=== PATIENT | female | born 1990 | race Caucasian/White ===

== ENCOUNTER 2024-12-12 12:41 | Inpatient (IN) | payer MEDICAID, SELFPAY ==
--- NOTE | ~2024-12-12 | XR_ITS ---
CLINICAL HISTORY: fever unknown origin 1 view chest x-ray Comparison: CT - CT ABDOMEN PELVIS WO IV CON - 12/12/24 15:55 EDT Findings: Low lung volumes are present. Portable technique is limited by motion, lordotic positioning, and body habitus. Allowing for these limitations, the lungs are clear. Cardiac and mediastinal silhouettes are normal. IMPRESSION: 1. No acute cardiopulmonary findings. This document has been electronically signed by: Milton Fong III, MD PHD on 12/12/2024 22:31:18
--- NOTE | ~2024-12-12 | XR_ITS ---
CLINICAL HISTORY: R side back pain Three views of the lumbar spine. COMPARISON: None provided. FINDINGS: Five wqo-vfr-fumejod lumbar type vertebral bodies. Normal vertebral body alignment. Vertebral body heights are maintained. No evidence of acute vertebral body injury. Vertebral disc space heights are maintained. No significant degenerative changes. Visualized portions of the bones of the pelvis appear intact. IMPRESSION: 1. No radiographic evidence of acute injury to the lumbar spine. No significant degenerative changes. This document has been electronically signed by: Jarod Kunz MD on 12/12/2024 14:15:59
--- NOTE | ~2024-12-12 | CT_ITS ---
CLINICAL HISTORY: flank pain, low back pain, concern for stone CT abdomen and pelvis without IV contrast. COMPARISON: None provided. FINDINGS: Minimal atelectasis along the posterior lower lobes. Hepatic steatosis. Liver is enlarged with right lobe measuring 19.2 cm. Normal gallbladder. Normal spleen. Normal pancreas. Normal adrenal glands. No right-sided hydronephrosis. No right renal or ureteral calculus. No left-sided hydronephrosis. No left renal or ureteral calculus. Normal appendix. Mild colonic stool burden. No bowel obstruction. No evidence of diverticulitis. No mesenteric or retroperitoneal lymphadenopathy. Normal abdominal aorta. Normal appearance of the urinary bladder. Dominant right ovarian cyst/follicle measuring up to 2.1 cm. Small fat containing umbilical hernia. No acute fracture or suspicious bone lesion. IMPRESSION: 1. No evidence of renal obstruction. No renal or ureteral calculus bilaterally. 2. Dominant right ovarian cyst/follicle measuring up to 2.1 cm 3. Hepatic steatosis with hepatomegaly. This document has been electronically signed by: Jarod Kunz MD on 12/12/2024 16:39:36
--- NOTE | ~2024-12-12 | MR_ITS ---
CLINICAL HISTORY: intractable back pain with fever max 102 MR lumbar spine with and without gadolinium Comparison: CT - CT ABDOMEN PELVIS WO IV CON - 12/12/24 15:55 EDT Findings: The usual lumbar lordosis is maintained without spondylolisthesis. Vertebral body heights are maintained. No suspicious marrow signal abnormality or enhancement. Mild multilevel facet osteoarthritis. The conus medullaris terminates normally at L1-L2. No evidence of epidural abscess. At L5-S1, the intervertebral disc is desiccated with a right central/foraminal disc protrusion and annular fissure. This may abut the transiting right S1 nerve root. No significant neural foraminal narrowing. Small left renal cyst. Circumaortic left renal vein, normal variant. IMPRESSION: 1. No evidence of lumbar spine infection. 2. L5-S1 right central/foraminal disc protrusion and annular fissure with possible mild abutment of the transiting right S1 nerve root. This document has been electronically signed by: Too Cross DO on 12/13/2024 11:03:46
[2024-12-12 12:51] VITALS: BP 105/60; BP 150/98; PULSE 108; PULSE 120; RESP 18; TEMP 37.9; O2SAT 96; BMI 43.4
--- NOTE | 2024-12-12 12:53 | ED_ITS ---
HPI - General Adult General Chief complaint: General Medical Stated complaint: R LOW BACK PAIN X3D,DIFF W/SITTING PER EMS Time Seen by Provider: 12/12/24 12:52 Source: patient, RN notes reviewed and old records reviewed Mode of arrival: ambulatory History of Present Illness ED Provider: FLORENTIN Turcios HPI narrative: 34-year-old female with a medical history of PID presents to the emergency department by ambulance due to 3 days of right-sided lower back pain, with fever, chills, nausea and 1 episode of diarrhea. Patient states she woke up 3 days ago when she was getting into bed in a chair she had pain in the lower right side of her back that felt like a muscle spasm, states she had been trying to stretch to relieve the pain without effect. Patient states back pain is severe, is only able to lay on her left side, it is having difficulty walking and was unable to lift her right leg to get her pants on this morning, needed help from her to get dressed. Patient states she took Flexeril last night without effect, but has not tried any other analgesia. She denies fall, trauma, injury or increased physical activity. Additionally patient woke up with fever, chills, intermittent nausea and 1 episode of watery diarrhea. Patient states she had her Godson stay the night at her house who was sick with same symptoms. Denies chest pain, shortness of breath, black/tarry stool, urinary symptoms. MD complaint: R side lower back pain, nausea, fever, chills Related Data Allergies Allergy/AdvReac Type Severity Reaction Status Date / Time latex Allergy Unknown Verified 12/12/24 12:54 tramadol Allergy Unknown Verified 12/12/24 12:54 Review of Systems 2 Review of Systems: CONST: Negative for body aches. POS fever, chills HENT: Negative for neck pain/stiffness, headache, congestion, sore throat, swelling. EYES: Negative for discharge/pain or vision changes. RESP: Negative for cough/hemoptysis and shortness of breath. CV: Negative chest pain, difficulty breathing, palpitations. ABD: Negative pain, nausea, vomiting. : Negative increase frequency, dysuria, blood in urine or stool. MUSC: Negative for muscle aches, edema. POS R side lumbar back pain SKIN: Negative rash, lesions/sores. NEURO: Negative headache, dizziness, weakness. Yes all other systems are reviewed and are negative [facility] Past Medical History Attestation statement: The following information was validated with the patient. Source: old records reviewed and nursing notes reviewed Social History Social History Smoked in Last 30 Days: No Substance Use Type: Marijuana Substance Use Type Other:: vape Advance Directives: No Advance Directives Information Provided: Yes Physical Exam ED Vital Signs: Vital Signs - 24 hr 12/12/24 12:51 12/12/24 14:13 12/12/24 14:22 Temperature 100.2 F 98.5 F 98 F Pulse Rate 108 H 93 91 Respiratory Rate 18 16 Blood Pressure 105/60 89/52 L 105/63 Pulse Oximetry 96 94 Oxygen Delivery Method Room Air Room Air 12/12/24 17:53 Temperature 97.9 F Pulse Rate 84 Respiratory Rate 16 Blood Pressure 119/69 Pulse Oximetry 97 Oxygen Delivery Method Room Air BMI result Body Mass Index 43.4 GENERAL APPEARANCE: ?AxOx4, generally well-appearing, no acute distress. HEENT: ?NC, AT. MMM. EOMI, clear conjunctiva, oropharynx clear. NECK: ?Supple without lymphadenopathy.? No stiffness or restricted ROM. HEART:? tachycardic rate and regular rhythm, normal S1/S2, no m/r/g LUNGS:? CTAB, moving air well. No crackles or wheezes are heard. ABDOMEN: ?Soft, nontender, nondistended with good bowel sounds heard. BACK: No CVAT, no obvious deformity. TTP of right-sided lumbar paraspinal muscles and SI joint, positive straight leg test, no midline spinal tenderness, no bony step-offs palpated, no overlying skin changes rashes or anatomical abnormalities observed or palpated. EXTREMITIES: ?Without cyanosis, clubbing or edema. NEUROLOGICAL: ?Grossly nonfocal. Alert and oriented, moving all 4 extremities. Skin: ?Warm and dry without any rash. Course Course Course Narrative: I received this patient on sign out from LENARD Chu pending imaging result and pain control. Patient's lumbar XR was negative, patient's CT abd/pelvis was negative. Patient was given Dilaudid, solu-medrol, valium, tylenol, and toradol however - her back pain persisted. Patient had a normal neurological examination. Given the patient's intractable pain, I spoke with the hospitalist team who agreed to admission. Medications Administered Discontinued Medications Generic Name Dose Route Start Last Admin Trade Name Grecia PRN Reason Stop Dose Admin Diazepam 5 mg 12/12/24 13:07 12/12/24 13:17 Diazepam 10 Mg/2 Ml Cartridge IVPUSH 12/12/24 13:08 5 mg STAT STA Administration Hydromorphone HCl 1 mg 12/12/24 14:59 12/12/24 15:26 Hydromorphone Hcl 1 Mg/Ml Syringe IVPUSH 12/12/24 15:00 1 mg ONCE ONE Administration Protocol Lactated Ringer's 1,000 mls @ 999 mls/hr 12/12/24 13:07 12/12/24 16:29 Lr IV 12/12/24 14:07 Infused .Q1H1M ONE Infusion Acetaminophen 1,000 mg in 100 mls @ 400 mls/hr 12/12/24 13:07 12/12/24 14:20 Ofirmev IV 12/12/24 13:21 Infused ONCE ONE Infusion Ketorolac Tromethamine 15 mg 12/12/24 17:42 12/12/24 17:57 Ketorolac Tromethamine 15 Mg/Ml Vial IVPUSH 12/12/24 17:43 15 mg ONCE ONE Administration Methylprednisolone Sodium Succinate 60 mg 12/12/24 14:05 12/12/24 14:27 Methylprednisolone Sod Succ 125 Mg/2 Ml Vial IVPUSH 12/12/24 14:06 60 mg ONCE ONE Administration Medical Decision Making Medical Decision Making MDM Narrative: 34-year-old female with medical history of PID complaining of 3 days of right- sided back pain, fever, chills, intermittent nausea and 1 episode of watery diarrhea. Patient with exposure to sick contact, her God son was sick with same symptoms and stayed the night at her house prior to onset of patients symptoms. Patient extremely uncomfortable, is only able to lay on her left side. Child Flexeril last night without effect. VS on initial observation-BP 105/60, pulse rate of 108, respiratory rate of 18, afebrile with oral temp of 100.2, O2 saturation 96% on room air. On physical exam patient tender over right-sided lumbar paraspinal muscles and SI joint, with a positive straight leg test, without midline spinal tenderness, unable to assess ROM due to patient pain. Plan: Labs, viral serology, UA, XR lumbar spine Patient being medicated with IV fluids, 975mg tylenol and 5mg valium to treat tachycardia, fever, and muscle spasm. Course 14:07- Labs without leukocytosis/leukopenia, H&H stable, sodium very mildly decreased at 134. Viral serology negative. Patient being signed out to my colleague FLORENTIN Rodriguez who will resume care of the patient. Patient is currently pending UA, and XR lumbar spine. Differential Diagnosis Differential Diagnoses: The differential diagnosis associated with the presentation includes COVID Flu Viral illness lumbar fracture Lumbar strain Admission/Observation Consideration of admission/observation: Escalation of care including admission/observation considered Patient admitted as noted in the course portion of this note. Consult Healthcare Provider Management of the patient was discussed with: Hospitalist (agreed to admission as noted in the course portion of this note. ) Lab Data MDM Lab Attestation statement: I reviewed the patient's lab results. My interpretation of these studies and their corresponding values is that they are grossly normal. 12/12/24 13:29 12/12/24 13:29 Labs: Lab Results 12/12/24 Range/Units 13:29 WBC 8.5 (4.8-10.8) X10*3/uL RBC 5.06 (4.20-5.50) X10*6/uL Hgb 14.1 (12.0-16.0) g/dl Hct 42.0 (37.0-47.0) % MCV 83.0 (80.0-98.0) fL MCH 27.9 (27.0-33.0) pg MCHC 33.6 (31.0-35.0) g/dl RDW 13.7 (11.0-16.0) % Plt Count 205 (160-400) X10*3/uL MPV 8.6 L (9.4-12.3) fL Immature Gran % (Auto) 0.6 H (0.0-0.4) % Neut % (Auto) 73.7 H (45-73) % Lymph % (Auto) 14.6 L (20-40) % [place] % (Auto) 10.3 (2-11) % Eos % (Auto) 0.2 (0-4) % Baso % (Auto) 0.6 (0-2) % Lymph # (Auto) 1.2 (1.2-4.9) X10*3/uL [place] # (Auto) 0.9 (0.1-1.2) X10*3/uL Eos # (Auto) 0.0 (0.0-0.4) X10*3/uL Baso # (Auto) 0.1 (0.0-0.2) X10*3/uL Abs Immat Gran (auto) 0.05 H (0.00-0.03) X10*3/uL Absolute Neuts (auto) 6.2 (2.0-8.3) x10*3/uL Absolute Nucleated RBC 0.000 (0.0-0.012) X10*3/uL Nucleated RBC % (auto) 0.0 (0.0-0.2) /100WBC Sodium 134 L (135-145) mmol/L Potassium 3.6 (3.3-5.1) mmol/L Chloride 100 (96-108) mmol/L Carbon Dioxide 22 (22-29) mmol/L Anion Gap 16 (12-20) BUN 9 (9-16) mg/dL Creatinine 0.82 (0.5-1.4) mg/dL Estim Creat Clear Calc 121.2 Estimated GFR > 60 Random Glucose 101 (60-115) mg/dL Calcium 9.1 (8.4-10.2) mg/dL Magnesium 2.0 (1.6-2.6) mg/dL Total Bilirubin 0.3 (0.0-1.0) mg/dL AST 46 H (5-31) U/L ALT 40 H (0-31) U/L Alkaline Phosphatase 105 (39-117) U/L Total Protein 7.8 (6.5-8.0) g/dL Albumin 4.2 (3.5-5.0) g/dL Beta HCG, Quant < 2 mIU/mL COVID-19 (STEF) Negative (Negative) COVID-19 Clin Com See Note Influenza Type A (TOSHIA) Negative (Negative) Influenza Type B (TOSHIA) Negative (Negative) Influenza A & B Note See Note Independent Interpretation I performed an independent interpretation of an: Plain X-Ray and CT Scan Interpretation: My interpretation is in agreement with the radiologist's impression of these imaging studies. L Reason for Exam: flank pain, low back pain, concern for stone CLINICAL HISTORY: flank pain, low back pain, concern for stone CT abdomen and pelvis without IV contrast. COMPARISON: None provided. FINDINGS: Minimal atelectasis along the posterior lower lobes. Hepatic steatosis. Liver is enlarged with right lobe measuring 19.2 cm. Normal gallbladder. Normal spleen. Normal pancreas. Normal adrenal glands. No right-sided hydronephrosis. No right renal or ureteral calculus. No left-sided hydronephrosis. No left renal or ureteral calculus. Normal appendix. Mild colonic stool burden. No bowel obstruction. No evidence of diverticulitis. No mesenteric or retroperitoneal lymphadenopathy. Normal abdominal aorta. Normal appearance of the urinary bladder. Dominant right ovarian cyst/follicle measuring up to 2.1 cm. Small fat containing umbilical hernia. No acute fracture or suspicious bone lesion. IMPRESSION: 1. No evidence of renal obstruction. No renal or ureteral calculus bilaterally. 2. Dominant right ovarian cyst/follicle measuring up to 2.1 cm 3. Hepatic steatosis with hepatomegaly. This document has been electronically signed by: Jarod Kunz MD on 12/12/2024 16:39:36 Dictated By: Jarod Kunz MD Signed By: Electronically signed by Jarod Kunz MD 12/12/24 1640 Reason for Exam: R side back pain CLINICAL HISTORY: R side back pain Three views of the lumbar spine. COMPARISON: None provided. FINDINGS: Five [id number] lumbar type vertebral bodies. Normal vertebral body alignment. Vertebral body heights are maintained. No evidence of acute vertebral body injury. Vertebral disc space heights are maintained. No significant degenerative changes. Visualized portions of the bones of the pelvis appear intact. IMPRESSION: 1. No radiographic evidence of acute injury to the lumbar spine. No significant degenerative changes. This document has been electronically signed by: Jarod Kunz MD on 12/12/2024 14:15:59 Dictated By: Jarod Kunz MD Signed By: Electronically signed by Jarod Kunz MD 12/12/24 1416 Radiology Impression Discussion of test interpretation with radiology: I have reviewed the radiologist's reading. Radiologist Impression: XR lumbar spine External Record Review External record reviewed: Inpatient record, Office record and Outpatient record Social Determinants Patient?s care significantly limited by Social Determinants of Health including: Other Social Determinant of Health Critical Care Time Critical Care Time Critical Care Time: Yes Total Critical Care Time: 46 Attestation: I spent 46 minutes of Critical Care Time with this patient. This does not include time spent on separately reported billable procedures. Discharge Plan Discharge Clinical Impression: Intractable back pain Patient Disposition: Admitted As Inpatient Print Language: [place]se
[2024-12-12] MEDS: diazePAM 10 MG/2 ML CARTRIDGE 5 MG IVPUSH (13:17)
[2024-12-12] MEDS: Lactated Ringers 1,000 ML 999 ML IV (13:18)
[2024-12-12 13:34] LABS: MANUAL DIFF FLAG NO
[2024-12-12 13:44] LABS: Hematocrit 42.0 % (37.0-47.0); Hemoglobin 14.1 g/dl (12.0-16.0); Imm Gran Abs Auto 0.05 X10*3/uL (0.00-0.03); Imm Gran Pct Auto 0.6 % (0.0-0.4); Lymphocytes Absolute Auto 1.2 X10*3/uL (1.2-4.9); Mean Corpuscular HGB Conc 33.6 g/dl (31.0-35.0); Mean Corpuscular Hemoglobin 27.9 pg (27.0-33.0); Mean Corpuscular Volume 83.0 fL (80.0-98.0); NRBC Abs Auto 0.000 X10*3/uL (0.0-0.012); NRBC Pct Auto 0.0 /100WBC (0.0-0.2); Platelet Count 205 X10*3/uL (160-400); Red Blood Count 5.06 X10*6/uL (4.20-5.50); White Blood Count 8.5 X10*3/uL (4.8-10.8)
[2024-12-12 13:50] LABS: Alanine Aminotransferase 40 U/L (0-31); Albumin Level 4.2 g/dL (3.5-5.0); Alkaline Phosphatase 105 U/L (39-117); Anion Gap 16 (12-20); Aspartate Amino Transferase 46 U/L (5-31); Blood Urea Nitrogen 9 mg/dL (9-16); COVID-19 Test Negative (Negative); Calcium 9.1 mg/dL (8.4-10.2); Carbon Dioxide 22 mmol/L (22-29); Chloride 100 mmol/L (96-108); Creatinine Clr Calc Pharmacy 121.2; Estimated Glomerular Filt Rate > 60; IDNOW Serial# 08D9AD1C; Magnesium 2.0 mg/dL (1.6-2.6); Potassium 3.6 mmol/L (3.3-5.1); Sodium 134 mmol/L (135-145); Total Protein 7.8 g/dL (6.5-8.0)
[2024-12-12 13:55] LABS: IDNOW Serial# 58CA691E; Influenza B2 Negative (Negative)
--- OUTSIDE RECORDS SUMMARY | 2024-12-12 14:08 | XMS_ITS | Clinical Summary ---
Author Organization [facility] Address [address] [place] [address] Phone Care Team Providers Care Wood Piler Name Role Phone Physician, Pcp Unknown Primary Care Provider Monica vailable Allergies Active Allergy Reactions Criticality Noted Date Comments Chlorhexidine Hives 06/09/2024 Latex Hives 06/09/2024 Ketorolac Unknown 06/09/2024 Tramadol Hives 06/09/2024 Medications benzocaine-ment hoL (Cepacol Sore Throat, stephanie-men,) 15-2.[address] 1 each into mouth between cheek and gum every 8 (eight) hours if needed (sore throat). 30 lozenge 06/09/2024 Active Social History Tobacco Use Types Packs/Day Years Used Date Smoking Tobacco: Never Assessed Comments Unknown Sex and Gender Information Value Date Recorded Sex Assigned at Female 06/09/2024 2:36 PM EST Legal Sex Female 12:46 PM EST Gender Identity Female 06/09/2024 2:36 PM EST Sexual Orientation Straight 06/09/2024 2: 36 PM EST Last Filed Vital Signs Vital Sign Reading Time Taken Comments Blood Pressure 128/70 06/09/2024 12:53 PM EST Pulse 95 06/09/2024 12:53 PM EST Temperature 36.7 C (98.1 F) 06/09/2024 12:53 PM EST Respiratory Rate 18 06/09/2024 12:53 PM EST Oxygen Saturation 100% 06/09/2024 12:53 PM EST Inhaled Oxygen Concentration - - Weight 106 kg (234 lb) 06/09/2024 12:53 PM EST Height 162.6 cm (5' 4 ) 06/09/2024 12:53 PM EST Body Mass Index 40.17 06/09/2024 12:53 PM EST Plan of Treatment Health Maintenance Due Date Last Done Comments DTaP,Tdap,and Td Vaccines (1 - Tdap) 07/10/2010 Hepatitis B Vaccines (1 of 3 - 19+ 3-dose series) 07/10/2010 Cervical Cancer Screening: P ap Smear 07/10/2012 Depression Screening 04/08/2024 HIV Screening 06/10/2024 Hepatitis C Screening 06/10/2024 Social Influencers of Health Screening 06/10/2024 COVID-19 Vaccine (1 - 2023-2 5 season) 2024 Influenza Vaccine (#1) 2024 HIB Vaccines Aged Out No longer eligi ble based on patient's age to complete this topic HPV Vaccines Aged Out No longer eligi ble based on patient's age to complete this topic Hepatitis A Vaccines Aged Out No long er eligible based on patient's age to complete this topic IPV Vaccines Aged Out No longer eligi ble based on patient's age to complete this topic MMR Vaccines Aged Out No longer eligi ble based on patient's age to complete this topic Meningococcal ACWY Vaccine Aged Out N o longer eligible based on patient's age to complete this topic Meningococcal B Vaccine Aged Out No l onger eligible based on patient's age to complete this topic Pneumococcal Vaccine: Pediat rics (0 to 5 Years) and At-Risk Patients (6 to 49 Years) Aged Out No longer eligible b ased on patient's age to complete this topic RSV Immunization Patients Un emery 20 months Aged Out No longer eligible b ased on patient's age to complete this topic Varicella Vaccines Aged Out No longer eligible based on patient's age to complete this topic Care Teams Wood Piler Relationship Specialty Start Date End Date Physician, Pcp Unknown PCP - General 06/09/24
[2024-12-12 14:13] VITALS: BP 89/52; PULSE 93; RESP 16; TEMP 36.9; O2SAT 94
[2024-12-12 14:22] VITALS: BP 105/63; PULSE 91; TEMP 36.6
[2024-12-12 17:53] VITALS: BP 119/69; PULSE 84; RESP 16; TEMP 36.6; O2SAT 97
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
[2024-12-12 20:24] VITALS: BP 108/63; PULSE 83; RESP 16; TEMP 36.7; O2SAT 93
[2024-12-12 22:18] LABS: Procalcitonin 0.36 ng/mL
[2024-12-13] VITALS (8 sets, daily range): BP systolic 98–132; BP diastolic 51–68; PULSE 62–96; RESP 14–20; TEMP 36.1–37.1; O2SAT 90–96; BMI 47.0
[2024-12-13] MEDS: 0.9 % Sodium Chloride Flush 3 ML SYRINGE IVFLUSH ×3 (01:36→16:37)
[2024-12-13 03:11] LABS: Appearance Urine Cloudy; Glucose Urine UA Negative (Negative); PH 5.5 (5.0-9.0); Specific Gravity - Urine 1.025 (1.005-1.025); UMIC TRIGGER UACC YES
[2024-12-13 05:06] LABS: Hematocrit 41.9 % (37.0-47.0); Hemoglobin 14.0 g/dl (12.0-16.0); Imm Gran Abs Auto 0.04 X10*3/uL (0.00-0.03); Imm Gran Pct Auto 0.5 % (0.0-0.4); Lymphocytes Absolute Auto 1.1 X10*3/uL (1.2-4.9); MANUAL DIFF FLAG NO; Mean Corpuscular HGB Conc 33.4 g/dl (31.0-35.0); Mean Corpuscular Hemoglobin 27.7 pg (27.0-33.0); Mean Corpuscular Volume 83.0 fL (80.0-98.0); NRBC Abs Auto 0.000 X10*3/uL (0.0-0.012); NRBC Pct Auto 0.0 /100WBC (0.0-0.2); Platelet Count 231 X10*3/uL (160-400); Red Blood Count 5.05 X10*6/uL (4.20-5.50); White Blood Count 8.1 X10*3/uL (4.8-10.8)
[2024-12-13 05:24] LABS: Alanine Aminotransferase 36 U/L (0-31); Albumin Level 4.2 g/dL (3.5-5.0); Alkaline Phosphatase 105 U/L (39-117); Anion Gap 14 (12-20); Aspartate Amino Transferase 33 U/L (5-31); Blood Urea Nitrogen 15 mg/dL (9-16); Calcium 9.2 mg/dL (8.4-10.2); Carbon Dioxide 23 mmol/L (22-29); Chloride 105 mmol/L (96-108); Creatinine Clr Calc Pharmacy 130.7; Estimated Glomerular Filt Rate > 60; Potassium 4.1 mmol/L (3.3-5.1); Sodium 138 mmol/L (135-145); Total Protein 7.6 g/dL (6.5-8.0)
[2024-12-13 06:23] LABS: Hemoglobin A1C 139.5887 umol/L; Total Hemoglobin (HGBA1C) 3670.4568 umol/L
--- NOTE | 2024-12-13 07:54 | PHA.MEDREC ---
Pharmacy Consult ? Medication Reconciliation Pharmacy has completed the medication reconciliation. No home meds based on notes and pharmacy claims.
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
[2024-12-13] MEDS: Lidocaine 4 % Patch ADH..PATCH 1 PATCH TRANSDERMA (16:39)
--- NOTE | 2024-12-13 17:37 | HO.PM.IMPN ---
Subjective Subjective Date of Service: 12/13/24 Interval History: Patient reports doing significant exertional activity and exercises prior to the onset of the pain. The patient reports that the pain is inferior to the PSIS, and suffers with pain with lateral rotation of the leg and bending the knee. She reports the pain is constant, however it worsens with sitting upright and trying to stand. Squats motions exacerbate the pain. Patient also reports that she has an electronic thermometer That she used to check her temperature at home , however reports it was unreliable when she was taking it. Her read on the electronic thermometer was around 101. Review of Systems Review of Systems: Yes all other systems are reviewed and are negative Physical Exam Exam: Exam: General: A&O x3, oriented to time place person and situation, comfortable, no pain Cardiac: S1, S2 auscultated with no S3/4, no MRG. Well perfused. Respiratory: Normal breath sounds auscultated throughout all lung zones, without wheezing, rales. Normal rate. GI/ : No abdominal pain on palpation, no masses or distentions. MSK: Normal ambulation without pain at bony prominences or musculature. On palpation of the right mid glute, the pain is reproducible. Pain is reproducible with external rotation of the right thigh flexion and inward rotation of the leg. Sitting upright reproduces the pain in the area, along with right-sided posterior shock-like pain producing with that motion. Neurological: Normal neurological examination on overview, without obvious CN II-XII abnormalities. Vital Signs: Vital Signs: Last Vital Signs Temp 98.0 F 12/13/24 14:57 Pulse 87 12/13/24 14:57 Resp 14 12/13/24 14:57 BP 132/58 L 12/13/24 14:57 Pulse Ox 94 12/13/24 14:57 O2 Del Method Room Air 12/13/24 14:57 BMI result Body Mass Index 47.0 Objective Data Active Medications Acetaminophen (Acetaminophen 325 Mg Tablet) 650 mg PO Q6H TALIA Last Admin: 12/13/24 16:38 Dose: 650 mg Documented By: GARRISON Albuterol/Ipratropium (Albuterol/Iprat 2.5/0.5mg 3 Ml Ampul.Neb) 3 ml INHALE Q4H PRN PRN Reason: Shortness of Breath/Wheezing Calcium Carbonate (Calcium Carbonate 750 Mg Tab.Chew) 750 mg PO Q4H PRN PRN Reason: Heartburn Cyclobenzaprine HCl (Cyclobenzaprine Hcl 10 Mg Tablet) 10 mg PO TID [facility] Last Admin: 12/13/24 16:39 Dose: 10 mg Documented By: GARRISON Enoxaparin Sodium (Enoxaparin Sodium 40 Mg/0.4 Ml Syringe) 40 mg SUBCUT Q24H [facility] Last Admin: 12/12/24 20:55 Dose: 40 mg Documented By: CAS Ibuprofen (Ibuprofen 600 Mg Tablet) 600 mg PO TIDWM [facility] Last Admin: 12/13/24 16:38 Dose: 600 mg Documented By: GARRISON Lidocaine (Lidocaine 4 % Patch Adh..Patch) 1 patch TRANSDERMA DAILY [facility]; Protocol Last Admin: 12/13/24 16:39 Dose: 1 patch Documented By: GARRISON Magnesium Hydroxide (Milk Of Magnesia 30 Ml Oral.Susp) 30 ml PO DAILY PRN PRN Reason: Constipation Melatonin (Melatonin 3 Mg Tablet) 6 mg PO BEDTIME PRN PRN Reason: Insomnia Omeprazole (Omeprazole 40 Mg Capsule.Dr) 40 mg PO DAILY@0630 [facility] Last Admin: 12/13/24 16:38 Dose: 40 mg Documented By: GARRISON Ondansetron HCl (Ondansetron Hcl 4 Mg/2 Ml Vial) 4 mg IVPUSH Q8H PRN PRN Reason: Nausea and Vomiting Polyethylene Glycol (Polyethylene Glycol 3350 17 Gm Powd.Pack) 17 gm PO DAILY PRN PRN Reason: Constipation Senna (Sennosides 8.6 Mg Tablet) 17.2 mg PO BEDTIME [facility] Last Admin: 12/12/24 20:55 Dose: 17.2 mg Documented By: CAS Sodium Chloride (0.9 % Sodium Chloride Flush 3 Ml Syringe) 3 ml IVFLUSH QSHIFT [facility] Last Admin: 12/13/24 16:37 Dose: 3 ml Documented By: GARRISON Labs 12/13/24 04:46 12/13/24 04:46 Labs: Laboratory Results - last 24 hr 12/12/24 12/13/24 12/13/24 20:21 02:51 04:46 MCV 83.0 MCH 27.7 MCHC 33.4 RDW 13.7 Plt Count 231 MPV 8.9 L Immature Gran % (Auto) 0.5 H Neut % (Auto) 77.2 H Lymph % (Auto) 13.0 L Terry % (Auto) 9.1 Eos % (Auto) 0.0 Baso % (Auto) 0.2 Lymph # (Auto) 1.1 L Terry # (Auto) 0.7 Eos # (Auto) 0.0 Baso # (Auto) 0.0 Abs Immat Gran (auto) 0.04 H Absolute Neuts (auto) 6.2 Absolute Nucleated RBC 0.000 Nucleated RBC % (auto) 0.0 ESR 29 H Anion Gap 14 Estim Creat Clear Calc 130.7 Estimated GFR > 60 Random Glucose 138 H Estimat Average Glucose 114 Hemoglobin A1c % 5.6 Lactic Acid 0.7 Calcium 9.2 Total Bilirubin 0.2 AST 33 H ALT 36 H Alkaline Phosphatase 105 Total Creatine Kinase C-Reactive Protein 14.70 H Total Protein 7.6 Albumin 4.2 Procalcitonin 0.36 TSH 0.36 Urine Color Yellow Urine Appearance Cloudy Urine pH 5.5 Ur Specific [place] 1.025 Urine Protein 30 (1+) H Urine Glucose (UA) Negative Urine Ketones 15 Urine Blood Moderate (2+) H Urine Nitrite Negative Ur Leukocyte Esterase Negative Urine RBC 0-2 Urine WBC 0-5 Ur Squamous Epith Cells 11-20 Urine Bacteria 3+ Hyaline Casts 3-5 12/13/24 16:38 MCV MCH MCHC RDW Plt Count MPV Immature Gran % (Auto) Neut % (Auto) Lymph % (Auto) Terry % (Auto) Eos % (Auto) Baso % (Auto) Lymph # (Auto) Terry # (Auto) Eos # (Auto) Baso # (Auto) Abs Immat Gran (auto) Absolute Neuts (auto) Absolute Nucleated RBC Nucleated RBC % (auto) ESR Anion Gap Estim Creat Clear Calc Estimated GFR Random Glucose Estimat Average Glucose Hemoglobin A1c % Lactic Acid Calcium Total Bilirubin AST ALT Alkaline Phosphatase Total Creatine Kinase 37 C-Reactive Protein Total Protein Albumin Procalcitonin TSH Urine Color Urine Appearance Urine pH Ur Specific [place] Urine Protein Urine Glucose (UA) Urine Ketones Urine Blood Urine Nitrite Ur Leukocyte Esterase Urine RBC Urine WBC Ur Squamous Epith Cells Urine Bacteria Hyaline Casts Assessment and Plan (1) PCOS (polycystic ovarian syndrome): Status: Acute (2) Obesity: Status: Acute (3) Hepatic steatosis: Status: Acute (4) Hepatomegaly: Status: Acute (5) Intractable back pain: Status: Acute (6) Fever: Status: Acute (7) Piriformis syndrome: Status: Acute Plan 34-year-old female, with a history of PCOS, ETOH abuse in remission, active electronic cigarette smoker, obesity, hypoglycemia, presents with complaints of lower back pain and subjective pyrexia, admitted for workup of MSK spasm, likely piriformis syndrome - monitoring for recurrence of pyrexia off antibiotic. Right-sided piriformis syndrome Right-sided sciatica Severe Lumbar back pain Recent significant exercise & exertion a few days prior to pain Physical examination consistent with piriformis syndrome with sciatica. No evidence of lumbago. X-ray lumbar spine negative MRI lumbar spine negative for acute compression, or nerve root compression, fracture. CT abdomen and pelvis negative for acute intra-abdominal findings PLAN - physical therapy - cyclobenzaprine t.i.d. scheduled - ibuprofen t.i.d. scheduled - acetaminophen t.i.d. scheduled - lidocaine patches scheduled - Omeprazole prescribed empirically for use of ibuprofen Pyrexia of unknown origin Patient reports temperature of a 101 degrees at home - subjective report; reports using electronic thermometer, but she reports it is unreliable. Temperature of a 100.2 in the emergency room No leukocytosis, with some neutrophilic shift. No nidus of infection identified based on symptomology and ROS No FRANCOIS, no hematuria. Elevated CRP, with ESR mildly elevated. Blood culture x2 pending UA pending Possibly 2/2 neurogenic reaction in the setting of muscle spasm/tear CPK checked Possible etiology of elevated CRP could be 2/2 transaminitis Hepatomegaly/ Hepatic Steatosis History of ETOH abuse, in remission Hx of heavy drinking teens through age 22 Pt only drinks 2 glasses of wine per month now LFT slightly elevated Recommend pt follow with GI as an outpatient for follow up Education provided to avoid alcohol - no concern for withdrawal, CIWA Avoid hepatotoxic medications PCOS Dominant right ovarian cyst/follicle measuring up to 2.1 cm Follows with [facility]IDENT[facility] SUPPORT [facility]IST, 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 Quality Stroke Does the patient have a stroke diagnosis?: No Reason for No Anti-thrombotic by Day Two: N/A - Med Ordered VTE Prior VTE?: No VTE Risk Level:: Medical - moderate - high VTE Device Contraindication: N/A - Device Ordered VTE Drug Contraindication: N/A - Med Ordered
[2024-12-13] MEDS: oxyCODONE HCl Immed Release 5 MG TABLET PO (22:38)
[2024-12-14] MEDS: oxyCODONE HCl Immed Release 5 MG TABLET PO ×5 (03:16→23:24)
[2024-12-14 03:19] VITALS: BP 101/58; PULSE 71; RESP 16; TEMP 36.1; O2SAT 98
[2024-12-14 07:55] VITALS: BP 111/60; PULSE 78; RESP 18; TEMP 36.1; O2SAT 95
[2024-12-14] MEDS: 0.9 % Sodium Chloride Flush 3 ML SYRINGE IVFLUSH ×3 (08:35→22:40)
[2024-12-14 11:33] VITALS: BP 100/55; PULSE 77; RESP 16; TEMP 36.2; O2SAT 96
--- NOTE | 2024-12-14 13:52 | HO.PM.IMPN ---
Subjective Subjective Date of Service: 12/14/24 Interval History: Persistent severe right buttock pain. Reports the pain is radiating into the spine. All movement is uncomfortable for the patient. She is hesitant to take the medications that have been prescribed - counseled that we should attempt to use these medications to determine if there useful or not - the patient is not fully convinced, however is agreeable. Requesting IV medications for assistance with pain. We will oblige in the interim. No new neurological issues or deficits. Review of Systems Review of Systems: Yes all other systems are reviewed and are negative Physical Exam Exam: Exam: General: A&O x3, oriented to time place person and situation, comfortable, no pain Cardiac: S1, S2 auscultated with no S3/4, no MRG. Well perfused. Respiratory: Normal breath sounds auscultated throughout all lung zones, without wheezing, rales. Normal rate. GI/ : No abdominal pain on palpation, no masses or distentions. MSK: Normal ambulation without pain at bony prominences or musculature. On palpation of the right mid glute, the pain is reproducible. Pain is reproducible with external rotation of the right thigh flexion and inward rotation of the leg. Sitting upright reproduces the pain in the area, along with right-sided posterior shock-like pain producing with that motion. Neurological: Normal neurological examination on overview, without obvious CN II-XII abnormalities. Vital Signs: Vital Signs: Last Vital Signs Temp 97.2 F 12/14/24 11:33 Pulse 77 12/14/24 11:33 Resp 16 12/14/24 11:33 BP 100/55 L 12/14/24 11:33 Pulse Ox 96 12/14/24 11:33 O2 Del Method Room Air 12/14/24 11:33 BMI result Body Mass Index 47.0 Objective Data Active Medications Acetaminophen (Acetaminophen 325 Mg Tablet) 650 mg PO Q6H [facility] Last Admin: 12/14/24 08:30 Dose: 650 mg Documented By: YOLANDE Albuterol/Ipratropium (Albuterol/Iprat 2.5/0.5mg 3 Ml Ampul.Neb) 3 ml INHALE Q4H PRN PRN Reason: Shortness of Breath/Wheezing Calcium Carbonate (Calcium Carbonate 750 Mg Tab.Chew) 750 mg PO Q4H PRN PRN Reason: Heartburn Cyclobenzaprine HCl (Cyclobenzaprine Hcl 10 Mg Tablet) 10 mg PO TID [facility] Last Admin: 12/14/24 08:33 Dose: 10 mg Documented By: YOLANDE Enoxaparin Sodium (Enoxaparin Sodium 40 Mg/0.4 Ml Syringe) 40 mg SUBCUT Q24H [facility] Last Admin: 12/13/24 21:44 Dose: 40 mg Documented By: BIRDIE Ibuprofen (Ibuprofen 600 Mg Tablet) 600 mg PO TIDWM [facility] Last Admin: 12/14/24 11:18 Dose: 600 mg Documented By: YOLANDE Lidocaine (Lidocaine 4 % Patch Adh..Patch) 1 patch TRANSDERMA DAILY [facility]; Protocol Last Admin: 12/14/24 08:39 Dose: Not Given Documented By: YOLANDE Non-Admin Reason: Patient Refused Magnesium Hydroxide (Milk Of Magnesia 30 Ml Oral.Susp) 30 ml PO DAILY PRN PRN Reason: Constipation Melatonin (Melatonin 3 Mg Tablet) 6 mg PO BEDTIME PRN PRN Reason: Insomnia Omeprazole (Omeprazole 40 Mg Capsule.Dr) 40 mg PO DAILY@0630 [facility] Last Admin: 12/14/24 08:34 Dose: 40 mg Documented By: YOLANDE Ondansetron HCl (Ondansetron Hcl 4 Mg/2 Ml Vial) 4 mg IVPUSH Q8H PRN PRN Reason: Nausea and Vomiting Oxycodone HCl (Oxycodone Hcl Immed Release 5 Mg Tablet) 5 mg PO Q4H PRN PRN Reason: back pain Last Admin: 12/14/24 11:17 Dose: 5 mg Documented By: YOLANDE Polyethylene Glycol (Polyethylene Glycol 3350 17 Gm Powd.Pack) 17 gm PO DAILY PRN PRN Reason: Constipation Senna (Sennosides 8.6 Mg Tablet) 17.2 mg PO BEDTIME [facility] Last Admin: 12/13/24 21:44 Dose: Not Given Documented By: BIRDIE Non-Admin Reason: Patient Refused Sodium Chloride (0.9 % Sodium Chloride Flush 3 Ml Syringe) 3 ml IVFLUSH QSHIFT [facility] Last Admin: 12/14/24 08:35 Dose: 3 ml Documented By: YOLANDE Labs 12/13/24 04:46 12/13/24 04:46 Labs: Laboratory Results - last 24 hr 12/13/24 16:38 Total Creatine Kinase 37 Microbiology Microbiology Results: Microbiology 12/12/24 20:21 Blood Culture - Preliminary Blood - Venous No growth after 24 hours. 12/12/24 20:21 Blood Culture - Preliminary Blood - Venous No growth after 24 hours. Assessment and Plan (1) Obesity: Status: Acute (2) Hepatic steatosis: Status: Acute (3) Hepatomegaly: Status: Acute (4) Intractable back pain: Status: Acute (5) Piriformis syndrome: Status: Acute (6) Nicotine dependence: Status: Acute Plan 34-year-old female, with a history of PCOS, ETOH abuse in remission, active electronic cigarette smoker, obesity, hypoglycemia, presents with complaints of lower back pain and subjective pyrexia, admitted for workup of MSK spasm, likely piriformis syndrome - monitoring for recurrence of pyrexia off antibiotic. Right-sided piriformis syndrome Right-sided sciatica Severe Lumbar back pain Recent significant exercise & exertion a few days prior to pain Physical examination consistent with piriformis syndrome with sciatica. No evidence of lumbago. X-ray lumbar spine negative MRI lumbar spine negative for acute compression, or nerve root compression, fracture. CT abdomen and pelvis negative for acute intra-abdominal findings CK negative PLAN - physical therapy - cyclobenzaprine t.i.d. scheduled - ibuprofen t.i.d. scheduled - acetaminophen t.i.d. scheduled - lidocaine patches scheduled - Omeprazole prescribed empirically for use of ibuprofen Pyrexia of unknown origin Patient reports temperature of a 101 degrees at home - subjective report; reports using electronic thermometer, but she reports it is unreliable. Temperature of a 100.2 in the emergency room No leukocytosis, with some neutrophilic shift. No nidus of infection identified based on symptomology and ROS No FRANCOIS, no hematuria. Elevated CRP, with ESR mildly elevated. 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 Quality Stroke Does the patient have a stroke diagnosis?: No Reason for No Anti-thrombotic by Day Two: N/A - Med Ordered VTE Prior VTE?: No VTE Risk Level:: Medical - moderate - high VTE Device Contraindication: N/A - Device Ordered VTE Drug Contraindication: N/A - Med Ordered
--- NOTE | 2024-12-14 14:55 | MHC.CLN ---
CONSULT NUTRITION CONSULT FOR PATIENT WOULD LIKE TO LOSE WEIGHT. VISITED WITH PATIENT IN HER ROOM. PROVIDED 2 HANDOUTS WITH INFORMATION ON HEALTHFUL EATING. 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 RECEPTIVE TO DISCUSSION AND INFORMATION PROVIDED.
[2024-12-14 15:52] VITALS: BP 106/57; PULSE 80; RESP 20; TEMP 36.3; O2SAT 96
--- NOTE | 2024-12-14 15:58 | MHC.CM.PN ---
PER ROUNDS PT NOMEDICALLY READY FOR DC DC EXPECTED IN 1 TO 2 DAYS
[2024-12-14 19:56] VITALS: BP 119/54; PULSE 89; RESP 18; TEMP 36.5; O2SAT 94
[2024-12-14 23:22] VITALS: BP 115/67; PULSE 82; RESP 18; TEMP 36.2; O2SAT 95
--- NOTE | 2024-12-15 00:02 | PC.NURSE ---
Around 22:00 patient was experiencing excruciating pain in her lower back radiating down her R leg. She was yelling out, crying and begging to get something more for the pain. Earlier during the day she got a 1x dose of IV Dilaudid and requested to try that again because the pain was too unbearable. Dr. Ervin notified and ordered 1x dose of IV Dilaudid. A little after administering this medication the patient verbalized she felt relief and she was able to finally sit up in the bed. She also voiced her concerns on how she will be able to tolerate the pain when she finally leaves from the hospital and shared her interest in getting steroid shots. This RN told her to share her same concerns with the MD during the day and that her concerns would also be passed on to the day RN during shift change.
[2024-12-15] MEDS: oxyCODONE HCl Immed Release 5 MG TABLET PO ×3 (03:40→21:24)
[2024-12-15 04:00] VITALS: BP 98/56; PULSE 81; RESP 20; TEMP 36.7; O2SAT 96
[2024-12-15] MEDS: 0.9 % Sodium Chloride Flush 3 ML SYRINGE IVFLUSH ×3 (08:07→19:30)
--- NOTE | 2024-12-15 09:43 | P.PNIM_ITS ---
Subjective Subjective Date of Service: 12/15/24 Interval History: Persistent severe right buttock pain and required IV dialaudid and having hard time moving at all this morning and inquiring about cortisol shot, no new focal neuro deficit She's refusing oral pain meds and inisting on getting IV pain meds Review of Systems Review of Systems: Yes all other systems are reviewed and are negative Physical Exam 2 Exam: Exam: General: A&O x3, oriented to time place person and situation, comfortable, no pain Cardiac: S1, S2 auscultated with no S3/4, no MRG. Well perfused. Respiratory: Normal breath sounds auscultated throughout all lung zones, without wheezing, rales. Normal rate. GI/ : No abdominal pain on palpation, no masses or distentions. MSK: Normal ambulation without pain at bony prominences or musculature. On palpation of the right mid glute, the pain is reproducible. Pain is reproducible with external rotation of the right thigh flexion and inward rotation of the leg. Sitting upright reproduces the pain in the area, along with right-sided posterior shock-like pain producing with that motion. Neurological: Normal neurological examination on overview, without obvious CN II-XII abnormalities. Vital Signs: Vital Signs: Last Vital Signs Temp 98.0 F 12/15/24 04:00 Pulse 81 12/15/24 04:00 Resp 20 12/15/24 04:00 BP 98/56 L 12/15/24 04:00 Pulse Ox 96 12/15/24 04:00 O2 Del Method Room Air 12/15/24 04:00 BMI result Body Mass Index 47.0 Objective Data Active Medications Acetaminophen (Acetaminophen 325 Mg Tablet) 650 mg PO Q6H [facility] Last Admin: 12/15/24 08:42 Dose: 650 mg Documented By: GÉNESIS Albuterol/Ipratropium (Albuterol/Iprat 2.5/0.5mg 3 Ml Ampul.Neb) 3 ml INHALE Q4H PRN PRN Reason: Shortness of Breath/Wheezing Albuterol/Ipratropium (Albuterol/Iprat 2.5/0.5mg 3 Ml Ampul.Neb) 3 ml INHALE RQ4H WHILE AWAKE PRN PRN Reason: Shortness of Breath Calcium Carbonate (Calcium Carbonate 750 Mg Tab.Chew) 750 mg PO Q4H PRN PRN Reason: Heartburn Cyclobenzaprine HCl (Cyclobenzaprine Hcl 10 Mg Tablet) 10 mg PO TID [facility] Last Admin: 12/15/24 08:07 Dose: 10 mg Documented By: GÉNESIS Enoxaparin Sodium (Enoxaparin Sodium 40 Mg/0.4 Ml Syringe) 40 mg SUBCUT Q24H [facility] Last Admin: 12/14/24 22:31 Dose: 40 mg Documented By: BIRDIE Ibuprofen (Ibuprofen 600 Mg Tablet) 600 mg PO TIDWM [facility] Last Admin: 12/15/24 08:07 Dose: 600 mg Documented By: GÉNESIS Lidocaine (Lidocaine 4 % Patch Adh..Patch) 1 patch TRANSDERMA DAILY [facility]; Protocol Last Admin: 12/15/24 08:09 Dose: Not Given Documented By: GÉNESIS Non-Admin Reason: Patient Refused Magnesium Hydroxide (Milk Of Magnesia 30 Ml Oral.Susp) 30 ml PO DAILY PRN PRN Reason: Constipation Melatonin (Melatonin 3 Mg Tablet) 6 mg PO BEDTIME PRN PRN Reason: Insomnia Last Admin: 12/14/24 23:24 Dose: 6 mg Documented By: BIRDIE Omeprazole (Omeprazole 40 Mg Capsule.Dr) 40 mg PO DAILY@0630 [facility] Last Admin: 12/15/24 05:49 Dose: 40 mg Documented By: BIRDIE Ondansetron HCl (Ondansetron Hcl 4 Mg/2 Ml Vial) 4 mg IVPUSH Q8H PRN PRN Reason: Nausea and Vomiting Oxycodone HCl (Oxycodone Hcl Immed Release 5 Mg Tablet) 5 mg PO Q4H PRN PRN Reason: back pain Last Admin: 12/15/24 03:40 Dose: 5 mg Documented By: BIRDIE Polyethylene Glycol (Polyethylene Glycol 3350 17 Gm Powd.Pack) 17 gm PO DAILY PRN PRN Reason: Constipation Senna (Sennosides 8.6 Mg Tablet) 17.2 mg PO BEDTIME [facility] Last Admin: 12/14/24 22:24 Dose: 17.2 mg Documented By: BIRDIE Sodium Chloride (0.9 % Sodium Chloride Flush 3 Ml Syringe) 3 ml IVFLUSH QSHIFT [facility] Last Admin: 12/15/24 08:07 Dose: 3 ml Documented By: GÉNESIS Labs 12/13/24 04:46 12/13/24 04:46 Labs: Laboratory Results - last 24 hr 12/13/24 16:38 Total Creatine Kinase 37 Microbiology Microbiology Results: Microbiology 12/12/24 20:21 Blood Culture - Preliminary Blood - Venous No growth after 48 hours. 12/12/24 20:21 Blood Culture - Preliminary Blood - Venous No growth after 48 hours. Assessment and Plan (1) Obesity: Status: Acute (2) Hepatic steatosis: Status: Acute (3) Hepatomegaly: Status: Acute (4) Intractable back pain: Status: Acute (5) Piriformis syndrome: Status: Acute (6) Nicotine dependence: Status: Acute Plan 34-year-old female, with a history of PCOS, ETOH abuse in remission, active electronic cigarette smoker, obesity, hypoglycemia, presents with complaints of lower back pain and subjective pyrexia, admitted for workup of MSK spasm, likely piriformis syndrome - monitoring for recurrence of pyrexia off antibiotic. Right-sided piriformis syndrome Right-sided sciatica Severe Lumbar back pain Recent significant exercise & exertion a few days prior to pain Physical examination consistent with piriformis syndrome with sciatica. No evidence of lumbago. X-ray lumbar spine negative MRI lumbar spine negative for acute compression, or nerve root compression, fracture. CT abdomen and pelvis negative for acute intra-abdominal findings CK negative PLAN - physical therapy - cyclobenzaprine t.i.d. scheduled - ibuprofen t.i.d. scheduled - acetaminophen t.i.d. scheduled - lidocaine patches scheduled - Omeprazole prescribed empirically for use of ibuprofen -empiric Prednisone Fever of 100.2 isolated and resolved. 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 Quality Stroke Does the patient have a stroke diagnosis?: No Reason for No Anti-thrombotic by Day Two: N/A - Med Ordered VTE Prior VTE?: No VTE Risk Level:: Medical - moderate - high VTE Device Contraindication: N/A - Device Ordered VTE Drug Contraindication: N/A - Med Ordered
[2024-12-15 09:52] VITALS: BP 138/81; PULSE 95; RESP 20; TEMP 36.6; O2SAT 97
[2024-12-15 12:00] VITALS: BP 102/63; PULSE 80; RESP 18; TEMP 36.2; O2SAT 98
[2024-12-15 15:10] VITALS: BP 107/61; PULSE 81; RESP 15; TEMP 36.1; O2SAT 95
[2024-12-15 19:48] VITALS: BP 119/67; PULSE 83; RESP 16; TEMP 36.1; O2SAT 95
[2024-12-15] MEDS: diazePAM 10 MG/2 ML CARTRIDGE 5 MG IVPUSH (22:33)
[2024-12-15 23:32] VITALS: BP 110/57; PULSE 96; RESP 20; TEMP 36.7; O2SAT 93
--- NOTE | 2024-12-16 02:00 | PC.NURSE ---
At beginning of 7P shift patient was screaming of back pain going down right posterior thigh. Could not move and find a comfortable position. Dr Ervin notified, Valium and Dilaudid ordered and administered. After a while patient was reporting relief and was greatly appreciative for helping in pain relief. Was able to position comfortably and fall asleep.
[2024-12-16 03:08] VITALS: BP 106/54; PULSE 91; RESP 20; TEMP 36.4; O2SAT 93
[2024-12-16 07:22] VITALS: BP 122/72; PULSE 87; RESP 18; TEMP 36.4; O2SAT 97
[2024-12-16] MEDS: 0.9 % Sodium Chloride Flush 3 ML SYRINGE IVFLUSH ×3 (07:27→20:38)
[2024-12-16] MEDS: oxyCODONE HCl Immed Release 5 MG TABLET PO (07:27)
--- NOTE | 2024-12-16 09:22 | P.PNIM_ITS ---
Subjective Subjective Date of Service: 12/16/24 Interval History: f/u on back pain, overall pain is better was able to work with PT on limited basis no new issue overnight, no focal neuro deficit, no urinary or stool incontinence Physical Exam 2 Vital Signs: Vital Signs: Last Vital Signs Temp 97.6 F 12/16/24 07:22 Pulse 87 12/16/24 07:22 Resp 18 12/16/24 07:22 BP 122/72 12/16/24 07:22 Pulse Ox 97 12/16/24 07:22 O2 Del Method Room Air 12/16/24 07:22 BMI result Body Mass Index 47.0 General: AO X 3, no acute distress Resp: CTA bilateral CVS: S1,S2,RRR GI: +BS, NT, no distention Skin: No rash Neuro: motor grossly intact, CN2 to 12 intact.. No Psych: appropriate affect Objective Data Active Medications Acetaminophen (Acetaminophen 325 Mg Tablet) 650 mg PO Q6H [facility] Last Admin: 12/16/24 04:41 Dose: 650 mg Documented By: SUSAN Albuterol/Ipratropium (Albuterol/Iprat 2.5/0.5mg 3 Ml Ampul.Neb) 3 ml INHALE Q4H PRN PRN Reason: Shortness of Breath/Wheezing Albuterol/Ipratropium (Albuterol/Iprat 2.5/0.5mg 3 Ml Ampul.Neb) 3 ml INHALE RQ4H WHILE AWAKE PRN PRN Reason: Shortness of Breath Calcium Carbonate (Calcium Carbonate 750 Mg Tab.Chew) 750 mg PO Q4H PRN PRN Reason: Heartburn Cyclobenzaprine HCl (Cyclobenzaprine Hcl 10 Mg Tablet) 10 mg PO TID [facility] Last Admin: 12/16/24 07:26 Dose: 10 mg Documented By: TAMIKO Enoxaparin Sodium (Enoxaparin Sodium 40 Mg/0.4 Ml Syringe) 40 mg SUBCUT Q24H [facility] Last Admin: 12/15/24 19:29 Dose: 40 mg Documented By: SUSAN Hydromorphone HCl (Hydromorphone Hcl 0.5 Mg/0.5 Ml Syringe) 0.5 mg IVPUSH Q4H PRN; Protocol PRN Reason: Breakthrough Pain Last Admin: 12/16/24 04:42 Dose: 0.5 mg Documented By: SUSAN Ibuprofen (Ibuprofen 600 Mg Tablet) 600 mg PO TIDWM [facility] Last Admin: 12/16/24 07:27 Dose: 600 mg Documented By: TAMIKO Lidocaine (Lidocaine 4 % Patch Adh..Patch) 1 patch TRANSDERMA DAILY [facility]; Protocol Last Admin: 12/16/24 08:19 Dose: Not Given Documented By: TAMIKO Non-Admin Reason: Patient Refused Magnesium Hydroxide (Milk Of Magnesia 30 Ml Oral.Susp) 30 ml PO DAILY PRN PRN Reason: Constipation Melatonin (Melatonin 3 Mg Tablet) 6 mg PO BEDTIME PRN PRN Reason: Insomnia Last Admin: 12/14/24 23:24 Dose: 6 mg Documented By: BIRDIE Omeprazole (Omeprazole 40 Mg Capsule.Dr) 40 mg PO DAILY@0630 [facility] Last Admin: 12/16/24 05:46 Dose: 40 mg Documented By: SUSAN Ondansetron HCl (Ondansetron Hcl 4 Mg/2 Ml Vial) 4 mg IVPUSH Q8H PRN PRN Reason: Nausea and Vomiting Oxycodone HCl (Oxycodone Hcl Immed Release 5 Mg Tablet) 5 mg PO Q4H PRN PRN Reason: back pain Last Admin: 12/16/24 07:27 Dose: 5 mg Documented By: TAMIKO Polyethylene Glycol (Polyethylene Glycol 3350 17 Gm Powd.Pack) 17 gm PO DAILY PRN PRN Reason: Constipation Senna (Sennosides 8.6 Mg Tablet) 17.2 mg PO BEDTIME [facility] Last Admin: 12/15/24 19:30 Dose: 17.2 mg Documented By: SUSAN Sodium Chloride (0.9 % Sodium Chloride Flush 3 Ml Syringe) 3 ml IVFLUSH QSHIFT [facility] Last Admin: 12/16/24 07:27 Dose: 3 ml Documented By: TAMIKO Labs 12/13/24 04:46 12/13/24 04:46 Labs: Laboratory Results - last 24 hr 12/13/24 16:38 Total Creatine Kinase 37 Microbiology Microbiology Results: Microbiology 12/12/24 20:21 Blood Culture - Preliminary Blood - Venous No growth after 48 hours. 12/12/24 20:21 Blood Culture - Preliminary Blood - Venous No growth after 48 hours. Assessment and Plan (1) Obesity: Status: Acute (2) Hepatic steatosis: Status: Acute (3) Hepatomegaly: Status: Acute (4) Intractable back pain: Status: Acute (5) Piriformis syndrome: Status: Acute (6) Nicotine dependence: Status: Acute Plan 34-year-old female, with a history of PCOS, ETOH abuse in remission, active electronic cigarette smoker, obesity, hypoglycemia, presents with complaints of lower back pain and subjective pyrexia, admitted for workup of MSK spasm, likely piriformis syndrome - monitoring for recurrence of pyrexia off antibiotic. Right-sided piriformis syndrome Right-sided sciatica Severe Lumbar back pain -likely trigered by recent significant exercise & exertion a few days prior to pain -Physical examination consistent with piriformis syndrome with sciatica. No evidence of lumbago or infection -X-ray lumbar spine negative -MRI lumbar spine negative for acute compression, or nerve root compression, fracture. -CT abdomen and pelvis negative for acute intra-abdominal findings -CK negative PLAN - physical therapy - Dilaudid for severe pain, oxycodone moderate pain, motrin for mild pain, Fever of 100.2 isolated and resolved. 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 Quality Stroke Does the patient have a stroke diagnosis?: No Reason for No Anti-thrombotic by Day Two: N/A - Med Ordered VTE Prior VTE?: No VTE Risk Level:: Medical - moderate - high VTE Device Contraindication: N/A - Device Ordered VTE Drug Contraindication: N/A - Med Ordered
[2024-12-16] MEDS: oxyCODONE HCl Immed Release 5 MG TABLET 10 MG PO ×3 (09:49→22:04)
--- NOTE | 2024-12-16 15:18 | MHC.CM.PN ---
major lozano pt not medically ready for dc dc plan [facility] [employer] n/s
[2024-12-16 15:45] VITALS: BP 108/57; PULSE 87; RESP 12; TEMP 37.1; O2SAT 94
[2024-12-16 19:37] VITALS: BP 125/69; PULSE 86; RESP 18; TEMP 36.4; O2SAT 97
[2024-12-16 23:07] VITALS: BP 122/65; PULSE 68; RESP 20; TEMP 36.9; O2SAT 99
[2024-12-17] VITALS (7 sets, daily range): BP systolic 99–120; BP diastolic 61–74; PULSE 80–109; RESP 16–18; TEMP 36.1–36.8; O2SAT 94–100
[2024-12-17] MEDS: diazePAM 10 MG/2 ML CARTRIDGE 5 MG IVPUSH (00:05)
[2024-12-17] MEDS: 0.9 % Sodium Chloride Flush 3 ML SYRINGE IVFLUSH ×3 (08:18→19:49)
--- NOTE | 2024-12-17 08:52 | P.PNIM_ITS ---
Subjective Subjective Date of Service: 12/17/24 Interval History: f/u on back pain, she is reporting overall improvement and was able to do more with PT yesterday, she did have some pain overnight and also thinking constipation maybe contributing to her pain. Has no new neuro symptoms. Physical Exam 2 Vital Signs: Vital Signs: Last Vital Signs Temp 97.1 F 12/17/24 07:39 Pulse 99 12/17/24 07:39 Resp 18 12/17/24 07:39 BP 113/74 12/17/24 07:39 Pulse Ox 96 12/17/24 07:39 O2 Del Method Room Air 12/17/24 07:39 BMI result Body Mass Index 47.0 General: AO X 3, no acute distress Resp: CTA bilateral CVS: S1,S2,RRR GI: +BS, NT, no distention Skin: No rash Neuro: motor grossly intact, CN2 to 12 intact.. No Psych: appropriate affect Objective Data Active Medications Acetaminophen (Acetaminophen 325 Mg Tablet) 650 mg PO Q6H PRN PRN Reason: Headache Last Admin: 12/16/24 09:48 Dose: 650 mg Documented By: TAMIKO Albuterol/Ipratropium (Albuterol/Iprat 2.5/0.5mg 3 Ml Ampul.Neb) 3 ml INHALE Q4H PRN PRN Reason: Shortness of Breath/Wheezing Albuterol/Ipratropium (Albuterol/Iprat 2.5/0.5mg 3 Ml Ampul.Neb) 3 ml INHALE RQ4H WHILE AWAKE PRN PRN Reason: Shortness of Breath Calcium Carbonate (Calcium Carbonate 750 Mg Tab.Chew) 750 mg PO Q4H PRN PRN Reason: Heartburn Cyclobenzaprine HCl (Cyclobenzaprine Hcl 10 Mg Tablet) 10 mg PO TID [facility] Last Admin: 12/17/24 08:17 Dose: 10 mg Documented By: ANDREW Enoxaparin Sodium (Enoxaparin Sodium 40 Mg/0.4 Ml Syringe) 40 mg SUBCUT Q24H [facility] Last Admin: 12/16/24 19:40 Dose: 40 mg Documented By: FRANCOISE Hydromorphone HCl (Hydromorphone Hcl 0.5 Mg/0.5 Ml Syringe) 0.5 mg IVPUSH Q4H PRN; Protocol PRN Reason: Breakthrough Pain Last Admin: 12/17/24 04:41 Dose: 0.5 mg Documented By: FRANCOISE Ibuprofen (Ibuprofen 600 Mg Tablet) 600 mg PO TIDWM PRN PRN Reason: Pain, Mild (Pain Scale 1-3) Last Admin: 12/16/24 14:30 Dose: 600 mg Documented By: TAMIKO Lidocaine (Lidocaine 4 % Patch Adh..Patch) 1 patch TRANSDERMA DAILY [facility]; Protocol Last Admin: 12/17/24 08:18 Dose: Not Given Documented By: ANDREW Non-Admin Reason: Patient Refused Magnesium Hydroxide (Milk Of Magnesia 30 Ml Oral.Susp) 30 ml PO DAILY PRN PRN Reason: Constipation Melatonin (Melatonin 3 Mg Tablet) 6 mg PO BEDTIME PRN PRN Reason: Insomnia Last Admin: 12/17/24 00:38 Dose: 6 mg Documented By: FRANCOISE Omeprazole (Omeprazole 40 Mg Capsule.Dr) 40 mg PO DAILY@0630 [facility] Last Admin: 12/17/24 05:55 Dose: 40 mg Documented By: FRANCOISE Ondansetron HCl (Ondansetron Hcl 4 Mg/2 Ml Vial) 4 mg IVPUSH Q8H PRN PRN Reason: Nausea and Vomiting Oxycodone HCl (Oxycodone Hcl Immed Release 5 Mg Tablet) 10 mg PO Q4H PRN PRN Reason: Pain, Moderate(Pain Scale 4-6) Last Admin: 12/16/24 22:04 Dose: 10 mg Documented By: FRANCOISE Polyethylene Glycol (Polyethylene Glycol 3350 17 Gm Powd.Pack) 17 gm PO DAILY PRN PRN Reason: Constipation Senna (Sennosides 8.6 Mg Tablet) 17.2 mg PO BEDTIME [facility] Last Admin: 12/16/24 20:32 Dose: 17.2 mg Documented By: FRANCOISE Sodium Chloride (0.9 % Sodium Chloride Flush 3 Ml Syringe) 3 ml IVFLUSH QSHIFT [facility] Last Admin: 12/17/24 08:18 Dose: 3 ml Documented By: ANDREW Labs 12/13/24 04:46 12/13/24 04:46 Labs: Laboratory Results - last 24 hr 12/13/24 16:38 Total Creatine Kinase 37 Microbiology Microbiology Results: Microbiology 12/12/24 20:21 Blood Culture - Preliminary Blood - Venous No growth after 48 hours. 12/12/24 20:21 Blood Culture - Preliminary Blood - Venous No growth after 48 hours. Assessment and Plan (1) Obesity: Status: Acute (2) Hepatic steatosis: Status: Acute (3) Hepatomegaly: Status: Acute (4) Intractable back pain: Status: Acute (5) Piriformis syndrome: Status: Acute (6) Nicotine dependence: Status: Acute Plan 34-year-old female, with a history of PCOS, ETOH abuse in remission, active electronic cigarette smoker, obesity, hypoglycemia, presents with complaints of lower back pain and subjective pyrexia, admitted for workup of MSK spasm, likely piriformis syndrome - monitoring for recurrence of pyrexia off antibiotic. Right-sided piriformis syndrome Right-sided sciatica Severe Lumbar back pain -likely trigered by recent significant exercise & exertion a few days prior to pain -Physical examination consistent with piriformis syndrome with sciatica. No evidence of lumbago or infection -X-ray lumbar spine negative -MRI lumbar spine negative for acute compression, or nerve root compression, fracture. -CT abdomen and pelvis negative for acute intra-abdominal findings -CK negative PLAN - physical therapy with help with stairs as has lots of stairs at home - Dilaudid for severe pain, oxycodone moderate pain, motrin for mild pain, Fever of 100.2 isolated and resolved. 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 Quality Stroke Does the patient have a stroke diagnosis?: No Reason for No Anti-thrombotic by Day Two: N/A - Med Ordered VTE Prior VTE?: No VTE Risk Level:: Medical - moderate - high VTE Device Contraindication: N/A - Device Ordered VTE Drug Contraindication: N/A - Med Ordered
[2024-12-17] MEDS: oxyCODONE HCl Immed Release 5 MG TABLET 10 MG PO ×2 (16:44→20:58)
[2024-12-18] VITALS (7 sets, daily range): BP systolic 101–131; BP diastolic 53–63; PULSE 86–120; RESP 16–18; TEMP 36.1–37.1; O2SAT 92–97
[2024-12-18] MEDS: oxyCODONE HCl Immed Release 5 MG TABLET 10 MG PO ×4 (01:03→23:55)
[2024-12-18] MEDS: 0.9 % Sodium Chloride Flush 3 ML SYRINGE IVFLUSH ×3 (08:38→20:42)
--- NOTE | 2024-12-18 10:33 | HO.PM.IMPN ---
Subjective Subjective Date of Service: 12/18/24 Interval History: Still has back pain but overall seems better, seen up and ambulating to bathroom, seems to get relief with gabapentin Physical Exam Vital Signs: Vital Signs: Last Vital Signs Temp 97.0 F 12/18/24 07:41 Pulse 100 12/18/24 07:41 Resp 18 12/18/24 07:41 BP 107/53 L 12/18/24 07:41 Pulse Ox 97 12/18/24 07:41 O2 Del Method Room Air 12/18/24 07:41 BMI result Body Mass Index 47.0 General: AO X 3, no acute distress Resp: CTA bilateral CVS: S1,S2,RRR GI: +BS, NT, no distention Skin: No rash Neuro: motor grossly intact, CN2 to 12 intact.. No Psych: appropriate affect Objective Data Active Medications Acetaminophen (Acetaminophen 325 Mg Tablet) 650 mg PO Q6H PRN PRN Reason: Headache Last Admin: 12/16/24 09:48 Dose: 650 mg Documented By: TAMIKO Albuterol/Ipratropium (Albuterol/Iprat 2.5/0.5mg 3 Ml Ampul.Neb) 3 ml INHALE Q4H PRN PRN Reason: Shortness of Breath/Wheezing Albuterol/Ipratropium (Albuterol/Iprat 2.5/0.5mg 3 Ml Ampul.Neb) 3 ml INHALE RQ4H WHILE AWAKE PRN PRN Reason: Shortness of Breath Calcium Carbonate (Calcium Carbonate 750 Mg Tab.Chew) 750 mg PO Q4H PRN PRN Reason: Heartburn Cyclobenzaprine HCl (Cyclobenzaprine Hcl 10 Mg Tablet) 10 mg PO TID [facility] Last Admin: 12/18/24 08:37 Dose: 10 mg Documented By: ANDREW Enoxaparin Sodium (Enoxaparin Sodium 40 Mg/0.4 Ml Syringe) 40 mg SUBCUT Q24H [facility] Last Admin: 12/17/24 19:46 Dose: 40 mg Documented By: LAMONT Hydromorphone HCl (Hydromorphone Hcl 0.5 Mg/0.5 Ml Syringe) 0.5 mg IVPUSH Q4H PRN; Protocol PRN Reason: Breakthrough Pain Last Admin: 12/18/24 01:44 Dose: 0.5 mg Documented By: LAMONT Ibuprofen (Ibuprofen 600 Mg Tablet) 600 mg PO TIDWM PRN PRN Reason: Pain, Mild (Pain Scale 1-3) Last Admin: 12/16/24 14:30 Dose: 600 mg Documented By: TAMIKO Lidocaine (Lidocaine 4 % Patch Adh..Patch) 1 patch TRANSDERMA DAILY [facility]; Protocol Last Admin: 12/18/24 09:14 Dose: Not Given Documented By: ANDREW Non-Admin Reason: Patient Refused Magnesium Hydroxide (Milk Of Magnesia 30 Ml Oral.Susp) 30 ml PO DAILY PRN PRN Reason: Constipation Melatonin (Melatonin 3 Mg Tablet) 6 mg PO BEDTIME PRN PRN Reason: Insomnia Last Admin: 12/17/24 00:38 Dose: 6 mg Documented By: FRANCOISE Omeprazole (Omeprazole 40 Mg Capsule.Dr) 40 mg PO DAILY@0630 [facility] Last Admin: 12/18/24 08:37 Dose: 40 mg Documented By: ANDREW Ondansetron HCl (Ondansetron Hcl 4 Mg/2 Ml Vial) 4 mg IVPUSH Q8H PRN PRN Reason: Nausea and Vomiting Oxycodone HCl (Oxycodone Hcl Immed Release 5 Mg Tablet) 10 mg PO Q4H PRN PRN Reason: Pain, Moderate(Pain Scale 4-6) Last Admin: 12/18/24 08:37 Dose: 10 mg Documented By: ANDREW Polyethylene Glycol (Polyethylene Glycol 3350 17 Gm Powd.Pack) 17 gm PO DAILY PRN PRN Reason: Constipation Senna (Sennosides 8.6 Mg Tablet) 17.2 mg PO BEDTIME [facility] Last Admin: 12/17/24 19:45 Dose: 17.2 mg Documented By: LAMONT Sodium Chloride (0.9 % Sodium Chloride Flush 3 Ml Syringe) 3 ml IVFLUSH QSHIFT [facility] Last Admin: 12/18/24 08:38 Dose: 3 ml Documented By: ANDREW Labs 12/13/24 04:46 12/13/24 04:46 Labs: Laboratory Results - last 24 hr 12/13/24 16:38 Total Creatine Kinase 37 Microbiology Microbiology Results: Microbiology 12/12/24 20:21 Blood Culture - Final Blood - Venous No growth after 5 days. 12/12/24 20:21 Blood Culture - Final Blood - Venous No growth after 5 days. Assessment and Plan (1) Obesity: Status: Acute (2) Hepatic steatosis: Status: Acute (3) Hepatomegaly: Status: Acute (4) Intractable back pain: Status: Acute (5) Piriformis syndrome: Status: Acute (6) Nicotine dependence: Status: Acute Plan 34-year-old female, with a history of PCOS, ETOH abuse in remission, active electronic cigarette smoker, obesity, hypoglycemia, presents with complaints of lower back pain and subjective pyrexia, admitted for workup of MSK spasm, likely piriformis syndrome - monitoring for recurrence of pyrexia off antibiotic. Right-sided piriformis syndrome Right-sided sciatica Severe Lumbar back pain MRI 2. L5-S1 right central/foraminal disc protrusion and annular fissure with possible mild abutment of the transiting right S1 nerve root. -continue pain control with gabapentin, oxycodone, and dilaudid for severe pain. Trial of prednisone, ambulation with PT Fever of 100.2 isolated and resolved. 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 Quality Stroke Does the patient have a stroke diagnosis?: No Reason for No Anti-thrombotic by Day Two: N/A - Med Ordered VTE Prior VTE?: No VTE Risk Level:: Medical - moderate - high VTE Device Contraindication: N/A - Device Ordered VTE Drug Contraindication: N/A - Med Ordered
[2024-12-19 03:03] VITALS: BP 103/59; PULSE 102; RESP 18; TEMP 36.2; O2SAT 95
[2024-12-19 06:49] VITALS: BP 100/57; PULSE 78; RESP 16; TEMP 36.6; O2SAT 98
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
[2024-12-19] MEDS: 0.9 % Sodium Chloride Flush 3 ML SYRINGE IVFLUSH (08:12)
[2024-12-19] MEDS: oxyCODONE HCl Immed Release 5 MG TABLET 10 MG PO ×2 (08:12→12:43)
[2024-12-19] MEDS: Milk of Magnesia 30 ML ORAL.SUSP PO (08:19)
[2024-12-19 11:32] VITALS: BP 118/66; PULSE 72; RESP 17; TEMP 36.6; O2SAT 98
--- NOTE | 2024-12-19 13:45 | MHC.CM.PN ---
pt dcd home self care
[2024-12-19 16:00] VITALS: BP 115/62; PULSE 76; RESP 18; TEMP 36.7; O2SAT 98
--- NOTE | 2024-12-20 20:30 | P.CDIM_ITS ---
PROVIDER RESPONSE TEXT: To clarify, the appropriate diagnosis supported by the clinical indicators: Obesity Due to excess calories QUERY TEXT: PHYSICIAN'S DOCUMENTATION REQUEST Date of Query: 12/15/2024 12:26 PM EDT Patient Name: Cathryn Briones Admit Date: 12/12/2024 Dear Carlton Levin MD, A review of the medical record indicates additional documentation may be needed. Please review below and update the documentation accordingly. Clinical Indicators: Height: ( ) 5'4 Weight: ( ) 124.3 kg BMI: ( ) 47.0 Other Clinical Notes Supporting Significance of the BMI: Obesity noted If possible, please provide an associated diagnosis related to the abnormal BMI, such as: Obesity Due to excess calories Obesity Drug induced Obesity Due to other cause Specify the other cause Severe or Morbid Obesity With alveolar hypoventilation Severe or Morbid Obesity Without alveolar hypoventilation BMI is not significant Other (explain) Clinically unable to determine (explain) Thank you, Jinny Miranda RN Use of terms such as suspected, likely, concern for, or probable (associated with a specific diagnosis that is being evaluated, monitored, or treated as if it exists) are acceptable and can be coded in the inpatient setting, when documented at the time of discharge. Please use your independent medical judgment in providing your response. THIS QUERY IS PART OF THE PERMANENT MEDICAL RECORD
== END 2024-12-19 16:30 | disposition home or self-care (01) | DRG 347 ==
LOC: HO.ED 19:46 → HO.EDOVER 20:06 → HO.S3 12-13 07:47
PROVIDERS: Hospitalist; Physician Assistant Medical; Admitting Provider Nurse Practitioner Family; Emergency Provider Emergency Medicine; Visit Provider Internal Medicine
DX: M51.16 Intervertebral disc disorders with radiculopathy, lumbar region (principal); K76.0 Fatty (change of) liver, not elsewhere classified; E28.2 Polycystic ovarian syndrome; G57.01 Lesion of sciatic nerve, right lower limb; E66.09 Other obesity due to excess calories; F17.290 Nicotine dependence, other tobacco product, uncomplicated; Z71.6 Tobacco abuse counseling; Z68.42 Body mass index [BMI] 45.0-49.9, adult; Z71.3 Dietary counseling and surveillance; F10.11 Alcohol abuse, in remission; Z20.822 Contact with and (suspected) exposure to COVID-19; Z79.899 Other long term (current) drug therapy
CPT/HCPCS: 36415; 71045; 72100; 72158; 74176; 80053; 81001; 82550; 83036; 83605; 83735; 84145; 84443; 84702; 85025; 85652; 86140; 87040; 87502; 87635; 97014; 97110; 97116; 97140; 97161; 97162; 97530; 99285; A9585; J0131; J1100; J1171; J1650; J1885; J2919; J3360; J7120

== ENCOUNTER → 2024-12-12 13:29 | Outpatient (BNV) | payer SELFPAY | PROVIDERS: Emergency Provider Emergency Medicine; Visit Provider Radiology Diagnostic Radiology | DX: N83.291 Other ovarian cyst, right side (principal); M51.17 Intervertebral disc disorders with radiculopathy, lumbosacral region; R50.9 Fever, unspecified | CPT/HCPCS: 71045; 72100; 74176 ==

== ENCOUNTER 2024-12-12 19:47 | Outpatient (BNV) | payer SELFPAY | END 2024-12-13 08:37 | PROVIDERS: Admitting Provider Nurse Practitioner Family; Emergency Provider Emergency Medicine; Visit Provider Radiology Diagnostic Radiology | DX: M51.A3 Intervertebral annulus fibrosus defect, lumbosacral region, unspecified size (principal); M51.16 Intervertebral disc disorders with radiculopathy, lumbar region | CPT/HCPCS: 72158 ==

== ENCOUNTER → 2024-12-12 19:47 | Outpatient (BNV) | payer MEDICAID, SELFPAY | PROVIDERS: Admitting Provider Nurse Practitioner Family; Emergency Provider Emergency Medicine; Visit Provider Nurse Practitioner Family | DX: E66.9 Obesity, unspecified (principal); K76.0 Fatty (change of) liver, not elsewhere classified; R16.0 Hepatomegaly, not elsewhere classified; M54.9 Dorsalgia, unspecified; G57.00 Lesion of sciatic nerve, unspecified lower limb; F17.200 Nicotine dependence, unspecified, uncomplicated | CPT/HCPCS: 99223; 99232 ==

== ENCOUNTER 2024-12-28 10:39 | Outpatient (AMB) | payer MEDICAID, SELFPAY ==
--- NOTE | 2024-12-28 10:42 | HO.SPINEOV ---
Vital Signs 12/28/24 10:49 Height 5 ft 4.5 in Weight 250 lb BMI 42.2 Intake Visit Reasons: ED f/u Intake Note: Ms. Briones is here today to F/u after ED visit for severe Right Low back pain. Linen Controller Required: No Allergies iodine Allergy (Severe, Verified 12/28/24 10:49) Anaphylaxis latex Allergy (Verified 12/28/24 10:49) Unknown tramadol Allergy (Verified 12/28/24 10:49) Unknown Physical Exam Vital Signs: BMI result Body Mass Index 42.2 Assessment & Plan Assessment & Plan (1) Back pain: Code(s): M54.9 - Dorsalgia, unspecified Category: Medical Plan This is a 34-year-old female who is here in follow-up today. She was in the emergency room a few weeks back and ultimately was admitted to the hospital, underwent an MRI for severe right-sided low back pain and this showed disc bulging on the right at L5-S1 with a small annular tear with possible abutment of the right S1 nerve root. She does not recall any specific event that caused the pain, just remembers getting out of bed 1 morning and feeling a bit stiff and then it ultimately progressed to right-sided severe back pain. She went to the hospital that day and then ultimately again was admitted because she was in so much discomfort. She was discharged home. She did have physical therapy visit when she was in the hospital but has been unable to do the exercises secondary to pain. She has been on cyclobenzaprine, gabapentin, oxycodone. She was put on a taper of prednisone as well. She does not have any pain shooting down the leg it is strictly right-sided low back pain which when she localizes it seems to be more over on the right SI joint region. She has no midline back pain to report. PMH: She tells me she is otherwise healthy, her chart lists history of polycystic ovary syndrome, obesity, and fatty liver Social hx: She vapes nicotine, takes edibles intermittently but does not drink Medications: As above her pain medications are only daily medications Allergies: None Physical exam: She is in tremendous discomfort, here with a walker limping around the exam room, unable to sit or stand for more than a few minutes, she likes to lay down on her left side. Examining her like this was very difficult, just simple motor exam testing gave her pain up into her low back on the right side. Examining her reflexes was not possible in this position. She was able to move all major muscle groups. She was crying at times. Imaging review: Lumbar MRI at [facility] shows a small disc bulge with an annular tear on the right at L5-S1. There maybe some slight posterior displacement of the nerve but I do not see any actual compression of it. No evidence of fracture, subluxation etc.. Impression: 34-year-old female presenting with severe right-sided low back pain in the setting of a relatively small if not very mild disc bulge with a small annular tear at L5-S1 on the right. I am not sure exactly if this would explain the degree of pain she is in. Typically this is something we would see and not recommend surgery. She has only had the pain for few weeks. I think she would be better served seeing our pain management colleagues. I will review the imaging with Dr. Caballero as well. I am going to put in urgent referral to Dr Zepeda. Thank you for allowing us to care for your patient. The total time spent with this visit with this patient was 45 minutes reviewing history, physical exam, lumbar imaging review, and implementation of treatment plan or further diagnostic testing Juan Manuel Caballero MD,PhD [facility] Orders: Referrals Pain Management Referral M54.9 - Dorsalgia, unspecified Coding Level of Care Code New Pt Level 4 (13201) Diagnoses Back pain M54.9
[2024-12-28 10:49] VITALS: BMI 42.2
--- OUTSIDE RECORDS SUMMARY | 2024-12-28 13:06 | XMS_ITS | Clinical Summary ---
Author Organization [facility] Address [address] [place] [address] Phone Care Team Providers Care Pump Rebuilder Name Role Phone Physician, Pcp Unknown Primary [...] 5 season) 2024 Influenza Vaccine (#1) 2024 RSV Immunization Adult Patie nts (1 - 1-dose 75+ series) 07/10/2066 HIB Vaccines Aged Out No longer eligi [...] age to complete this topic Care Teams Pump Rebuilder Relationship Specialty Start Date End Date Physician, Pcp Unknown PCP - General 06/09/24
== END 2024-12-28 11:08 | disposition home or self-care (01) ==
LOC: HO.HNS 10:39
PROVIDERS: Visit Provider Physician Assistant
DX: M54.9 Dorsalgia, unspecified (principal)
CPT/HCPCS: 99204

== ENCOUNTER → 2024-12-28 10:39 | Outpatient (BNVA) | payer MEDICAID, SELFPAY | PROVIDERS: Visit Provider Physician Assistant | DX: Z09 Encounter for follow-up examination after completed treatment for conditions other than malignant neoplasm (principal); M54.50 Low back pain, unspecified | CPT/HCPCS: 99212 ==

== ENCOUNTER 2024-12-30 10:38 | Outpatient (AMB) | payer MEDICAID, SELFPAY ==
--- NOTE | 2024-12-30 10:45 | A.OFFVIS_ITS ---
Vital Signs 12/30/24 10:50 Height 5 ft 4.5 in Weight 267 lb BMI 45.1 BP 128/82 Blood Pressure Location Lt radial Position Sitting Respiration 17 Pulse 80 Pulse Source Pulse Oximeter Intake Visit Reasons: Severe right-sided low back pain Safety Associate Required: No Accompanied by: Significant Other Allergies iodine Allergy (Severe, Verified 12/30/24 10:53) Anaphylaxis latex Allergy (Verified 12/30/24 10:53) Unknown tramadol Allergy (Verified 12/30/24 10:53) Unknown Medication List - Last Reconciled 12/30/24 by Nola Posadas LPN docusate sodium (Col-Rite) 100 mg PO BID gabapentin 300 mg PO BID miscellaneous medical supply As directed walker As directed walker (Ultra-Light Rollator misc) As directed HPI HPI Severe right-sided low back pain: Details: History of Present Illness The patient is a 34-year-old female presenting with severe pain due to disc herniation at L5-S1 with right S1 nerve involvement. The pain began suddenly on the third of the month, initially presenting as tension and escalating to excruciating pain radiating to the knee. The pain is acute and severe, affecting her ability to work and perform daily activities, including self-care. She was hospitalized for pain management but found the relief from medication inadequate for long-term management. Pain Description - Onset: Sudden, began on the third of the month - Quality: Excruciating, radiates to the knee - Location: Right side, radiating down the leg to the knee - Exacerbating factors: Sitting, bending - Relieving factors: Lying down - Interference: Affects work, self-care, and sleep Physical Exam - Musculoskeletal: Straight leg raise test was too painful for the patient to lift her right leg Pain Management - Affect: Pain significantly impacts mood and psychological wellbeing - Analgesia: Hospital medications provided temporary relief; considering epidural injection - Adverse Effects: None reported - Activities of Daily Living: Pain affects work, self-care, and sleep - Aberrant Drug Related Behaviors: None reported [facility] Medical History Marijuana use Nicotine dependence Alcohol abuse Obesity Hypoglycemia PCOS (polycystic ovarian syndrome) Social History (Updated 12/12/24 @ 20:48 by VALENTÍN Martínez) Household Members: Spouse Housing: Apartment Do you presently have visiting nurse or other home services: No Alcohol intake: current Alcohol intake frequency: a few times a month Comment: refusing bed alarm Patient Tobacco Use Status: Never used Tobacco Years Smoked: 12 e-Cigarette/Vaping Use: Currently Using Substance Use Type: Marijuana service: No Physical Exam Vital Signs: Last Vital Signs Pulse 80 12/30/24 10:50 Resp 17 12/30/24 10:50 BP 128/82 12/30/24 10:50 BMI result Body Mass Index 45.1 Assessment & Plan Assessment & Plan (1) Lumbar radiculopathy: Code(s): M54.16 - Radiculopathy, lumbar region Category: Medical Plan Plan Patient was informed and verbally consented to the use of an ambient scribe for clinic note documentation during this visit. 1. Disc Herniation At L5-S1 With Right S1 Nerve Involvement - Plan for a right L5 transforaminal epidural steroid injection to manage acute lumbar radicular pain. - Consideration of ablation of the basivertebral nerve at the S1 level for type 2 motor changes. - Continue physical therapy as tolerated. Discussion Notes I discussed with the patient the plan for a right L5 transforaminal epidural steroid injection to manage her acute lumbar radicular pain. We also considered the possibility of ablation of the basivertebral nerve at the S1 level for her type 2 motor changes. The patient was informed that the injection would not completely alleviate her pain but could provide temporary relief. We discussed the procedure details, including the need to lie on her belly for about 20 minutes and the inability to bring her service dog into the sterile room. I advised her to take Valium two hours before the procedure to help with anxiety. Patient Instructions - Plan for a right L5 transforaminal epidural steroid injection. - Take Valium two hours before the procedure to help with anxiety. - Continue physical therapy as tolerated. Medications: New diazepam (Valium) 5 mg PO ONCE PRN 1 tab 0RF sleep Coding Level of Care Code New Pt Level 4 (33130) Diagnoses Lumbar radiculopathy M54.16
[2024-12-30 10:50] VITALS: BP 128/82; PULSE 80; RESP 17; BMI 45.1
--- OUTSIDE RECORDS SUMMARY | 2024-12-30 13:16 | XMS_ITS | Clinical Summary ---
Author Organization [facility] Address [address] [place] [address] Phone Care Team Providers Care Public Policy Analyst Name Role Phone Physician, Pcp Unknown Primary [...] age to complete this topic Care Teams Public Policy Analyst Relationship Specialty Start Date End Date Physician, Pcp Unknown PCP - General 06/09/24
== END 2024-12-30 11:59 | disposition home or self-care (01) ==
PROVIDERS: Visit Provider Internal Medicine
DX: M54.16 Radiculopathy, lumbar region (principal)
CPT/HCPCS: 99204

== ENCOUNTER → 2024-12-30 10:38 | Outpatient (BNVA) | payer MEDICAID, SELFPAY | PROVIDERS: Visit Provider Internal Medicine | DX: M54.16 Radiculopathy, lumbar region (principal) | CPT/HCPCS: 99202 ==

== ENCOUNTER 2025-02-10 19:42 | Emergency (ER) | payer MEDICAID, SELFPAY ==
[2025-02-10 19:59] VITALS: BP 136/93; PULSE 112; RESP 18; TEMP 37.1; O2SAT 99; BMI 49.6
[2025-02-10 20:05] VITALS: BP 220/102; PULSE 130; O2SAT 97
--- OUTSIDE RECORDS SUMMARY | 2025-02-10 20:38 | XMS_ITS | Clinical Summary ---
Author Organization [facility] Address [address] [place] [address] Phone Care Team Providers Care Powder Room Attendant Name Role Phone Physician, Pcp Unknown Primary [...] Cervical Cancer Screening: P ap Smear 07/10/2012 HPV Vaccines (1 - 3-dose SCD M series) 07/10/2018 Depression Screening 04/08/2024 HIV Screening 06/10/2024 Hepatitis [...] age to complete this topic Care Teams Powder Room Attendant Relationship Specialty Start Date End Date Physician, Pcp Unknown PCP - General 06/09/24
--- OUTSIDE RECORDS SUMMARY | 2025-02-10 20:38 | XMS_ITS ---
Author Name [facility] Organization Unknown History of Medication Use Medication Directions Dispensed Refills Start Date End Date Stat us gabapentin 12/28/2024 active tizanidine 12/28/2024 active oxycodone HCl 12/28/2024 active cyclobenzaprine HCl 12/19/2024 a ctive docusate sodium 12/19/2024 activ e gabapentin 12/19/2024 active Encounters Encounter Type Encounter Reason Primary Diagnosis Location Date [facility]) 01/15/2025 Care Team Organization Name Specialty Phone Email Start Date End [facility] 01/20[facility]2025 [facility] 01/15/2025
--- NOTE | 2025-02-10 20:52 | PC.NURSE ---
pt biba from home, a&ox4, respirations even and unlabored. pt reports onset of lower back pain x1 month, pt reports she was admitted here previously and discharged with pain medications. reports pain medications have not been helping and she has had increased pain affecting ADLs. pt reports she was due for an epidural at the end of the month but pt was unable to wait. pt 2 A to bathroom
--- NOTE | 2025-02-10 22:02 | ED_ITS ---
HPI - Back Pain/Injury General Chief Complaint: Back Pain/Injury Stated Complaint: back pain difficulty walking Time Seen by Provider: 02/10/25 21:45 History of Present Illness ED Provider: james HPI Narrative: 34F with morbid obesity and known lumbosacral radiculopathy confirmed on MRI previously. Since discharge from our hospital where she was treated for radiculopathy with multimodal analgesia she has intermittently had difficulty walking at home and has had recurring and slightly worsening low back pain once again. There was no motor complaints or acute sensory complaints. Denies incontinence Related Data Previous Rx's ?Medication ?Instructions ?Recorded docusate sodium 100 mg capsule 100 mg PO BID #30 caps 12/19/24 (Col-Rite) gabapentin 300 mg capsule 300 mg PO BID #14 caps 12/19 walker #1 ea 12/19/24 miscellaneous medical supply #1 ea 12/21/24 walker (Ultra-Light Rollator misc) #1 ea 12/22/24 diazepam 5 mg tablet (Valium) 5 mg PO ONCE PRN sleep # 1 tab 12/30/24 gabapentin 300 mg capsule 300 mg PO BID 3 days #6 caps 02/11/25 methocarbamol 750 mg tablet 750 mg PO Q8H 6 days #18 t abs 02/11/25 morphine 15 mg immediate release 15 mg PO BID PRN pain #7 tabs 02/11/25 tablet Allergies Allergy/AdvReac Type Severity Reaction Status Date / Time iodine Allergy Severe Anaphylaxis Verified 02/10/25 20:02 latex Allergy Unknown Verified 02/10/25 20:02 tramadol Allergy Unknown Verified 02/10/25 20:02 [facility] Past Medical History Medical History Marijuana use Nicotine dependence Alcohol abuse Obesity Hypoglycemia PCOS (polycystic ovarian syndrome) Social History Social History (Updated 12/12/24 @ 20:48 by VALENTÍN Martínez) Household Members: Spouse Housing: Apartment Do you presently have visiting nurse or other home services: No Alcohol intake: current Alcohol intake frequency: a few times a month Comment: refusing bed alarm Patient Tobacco Use Status: Never used Tobacco Years Smoked: 12 Smoked in Last 30 Days: No e-Cigarette/Vaping Use: Currently Using Use of substances other than those prescribed or required for medical reasons: No Substance Use Type: Marijuana Advance Directives: No Advance Directives Information Provided: Yes Do you have a plan to hurt others: No Plan Patient : No service: No Physical Exam Exam: Exam: EXAM: Gen: Alert, awake, well appearing, well hydrated. During my bedside examination the patient is smiling and interactive does not appear distressed. Head: Atraumatic Eyes: Anicteric, Normal conjunctiva. ENT: Moist mucosa, no pallor. ? Neck: Supple. Skin: ?No observable rash or bruising on exposed or examined skin Respiratory: Breathing comfortably, No distress.Clear to auscultation bilaterally, symmetric chest expansion, No wheeze, rales, ronchi. Cardiovascular: Regular rate and rhythm. No murmurs or rub. Well perfused periphery, warm extremities. No edema. ? Abdominal: No focal tenderness. Soft, no objective distension. No palpable masses or obvious organomegaly. ?No guarding, no rebound tenderness or other peritoneal findings. : No flank tenderness. Neuro: Alert. Gross movement of all extremities intact. ? Psych: Calm. Cooperative. MSK: No grossly visible deformity. Moderate left low back tenderness no bruising no midline back tenderness Vital signs: See flowsheet Vital Signs: Vital Signs: Last Vital Signs Temp 98.7 F 02/10/25 19:59 Pulse 102 H 02/10/25 22:26 Resp 18 02/10/25 22:26 BP 107/64 02/10/25 22:26 Pulse Ox 98 02/10/25 22:26 O2 Del Method Room Air 02/10/25 22:26 BMI result Body Mass Index 49.6 Medications Administered Discontinued Medications Generic Name Dose Route Start Last Admin Trade Name Grecia PRN Reason Stop Dose Admin Dexamethasone 10 mg 02/10/25 21:46 02/10/25 22:15 Dexamethasone 2 Mg Tablet PO 02/10/25 21:47 10 mg ONCE ONE Administration Hydromorphone HCl 2 mg 02/10/25 23:17 02/10/25 23:46 Hydromorphone Hcl 2 Mg Tablet PO 02/10/25 23:18 2 mg ONCE ONE Administration Ketorolac Tromethamine 30 mg 02/10/25 21:46 02/10/25 22:26 Ketorolac Tromethamine 30 Mg/Ml Vial IM 02/10/25 21:47 30 mg ONCE ONE Administration Methocarbamol 750 mg 02/10/25 21:46 02/10/25 22:15 Methocarbamol 750 Mg Tablet PO 02/10/25 21:47 750 mg ONCE ONE Administration Medical Decision Making Medical Decision Making MDM Narrative: Medical Decision Making: [age] female overweight with history of MRI confirmed lumbosacral radiculopathy. Acute worsening of her pain she has been ambulating with some pain limitation in the ED there was no focal motor deficits no described retention or incontinence or perineal anesthesia. Pain control achieved moderately well with multimodal analgesia here. Short course of antispasmodics less addictive opioid encouraged NSAID Tylenol topicals ice or warmth until she follows up on the for epidural injection Preliminary Favored Differential Diagnosis: Lumbar radiculopathy among additional considered etiologies Testing Interpreted Independently: ?See below for details Radiology or Lab testing Results Reviewed: ?See below for details Consults: ?See below for details Independent Historians/External Chart Reviews: ?See below for details Social Determinants of Health Impacting MDM/Planning: ?See below for details Discharge Plan Discharge Clinical Impression: Acute lumbar radiculopathy Patient Disposition: Home, Self-Care Instructions: Lumbar Radiculopathy (ED) Additional Instructions: DISCHARGE DIAGNOSES: Low back pain, lumbar radiculopathy known disc protrusion HISTORY OF PRESENTATION: ?Low back pain acute on chronic no acute injuries no fever no weakness no incontinence EMERGENCY DEPARTMENT COURSE,TESTS, TREATMENTS: While in the ED today you were treated with multiple medications including topical and oral medications DISCHARGE MEDICATIONS: ?I recommend you put aside the previously prescribed medications and only take what I have prescribed you only as needed for severe pain FOLLOW-UP: ?Call your primary or general physician soon as possible to discuss your symptoms, your ED visit and to discuss follow up plans Follow up with previously scheduled epidural injection on the INSTRUCTIONS ?& RETURN PRECAUTIONS: If any symptoms change first call your primary physician, if it is after-hours your primary doctors office should have a provider rn practitioner you can speak with. If the symptoms are severe or very concerning to you then call 911 or return to the ED. Return for severe or worsening pain inability to walk, urinary or fecal incontinence or loss of sensation of the lower extremities Teodoro Quiroz MD Emergency Physician [facility] Prescriptions: New methocarbamol 750 mg tablet 750 mg PO Q8H 6 Days Qty: 18 0RF morphine 15 mg tablet 15 mg PO BID PRN (Reason: pain) Qty: 7 0RF Rx Instructions: Partial Fill upon patient request. gabapentin 300 mg capsule 300 mg PO BID 3 Days Qty: 6 0RF No Action gabapentin 300 mg Capsule 300 mg PO BID Qty: 14 0RF docusate sodium [Col-Rite] 100 mg capsule 100 mg PO BID Qty: 30 0RF (DME) walker Misc See Rx Instructions .Route Qty: 1 0RF Rx Instructions: As directed (DME) miscellaneous medical supply Misc See Rx Instructions .Route Qty: 1 0RF Rx Instructions: As directed (DME) Ultra-Light Rollator Misc See Rx Instructions .Route Qty: 1 0RF Rx Instructions: As directed diazepam [Valium] 5 mg tablet 5 mg PO ONCE PRN (Reason: sleep) Qty: 1 0RF Print Language: Bulgarian
[2025-02-10 22:26] VITALS: BP 107/64; PULSE 102; RESP 18; O2SAT 98
--- NOTE | 2025-02-11 01:06 | PC.NURSE ---
pt gave this RN medications to dispose as pt no longer wants them. 1 bottle meloxicam and 1 bottle of tizandine. This rn placed medications in pharmacy bag and verified with dual RN Clary VAZQUEZ
[2025-02-11 02:09] VITALS: BP 124/88; PULSE 74; RESP 16; TEMP 36.8; O2SAT 99
== END 2025-02-11 02:10 | disposition home or self-care (01) ==
PROVIDERS: Emergency Provider Emergency Medicine
DX: M54.16 Radiculopathy, lumbar region (principal); R26.2 Difficulty in walking, not elsewhere classified; Z79.899 Other long term (current) drug therapy
CPT/HCPCS: 96374; 99283; 99284; J1885; J8540

== ENCOUNTER 2025-02-14 02:38 | Observation (INO) | payer MEDICAID, SELFPAY ==
[2025-02-14] VITALS (11 sets, daily range): BP systolic 102–150; BP diastolic 47–92; PULSE 74–117; RESP 12–20; TEMP 36–36.9; O2SAT 93–98; BMI 44.6
--- OUTSIDE RECORDS SUMMARY | 2025-02-14 03:44 | XMS_ITS | Clinical Summary ---
Author Organization [facility] Address [address] [place] [address] Phone Care Team Providers Care Matcher Operator Name Role Phone Physician, Pcp Unknown Primary [...] age to complete this topic Care Teams Matcher Operator Relationship Specialty Start Date End Date Physician, Pcp Unknown PCP - General 06/09/24
--- NOTE | 2025-02-14 05:29 | PC.NURSE ---
pt resting comfortably in prone position. pain seems more managed at this time compared to arrival. hot packs given for lower back. no apparent distress noted. call babcock w/in reach.
--- NOTE | 2025-02-14 05:36 | ED_ITS ---
HPI - Back Pain/Injury General Chief Complaint: Back Pain/Injury Stated Complaint: 10/10 BACK PAIN,CHRONIC,SEEN 3D AGO FOR SAME Time Seen by Provider: 02/14/25 05:34 Source: patient Mode of arrival: EMS Limitations: no limitations History of Present Illness ED Provider: Dr. Aldo Pantoja HPI Narrative: 34-year-old female with a history of alcohol use disorder, hypoglycemia, PCOS, lumbar radiculopathy (MRI 12/13/2024 L5-S1 right central/foraminal disc protrusion and annular fissure with possible mild abutment of the transiting right S1 nerve root), followed by pain management who presents emergency department for evaluation of severe lower bilateral back pain radiating down the back of the right leg to her knee. Patient states she has been having pain since 12/09/2024, pain is gotten worse over the last week. Patient was seen in the emergency department on 02/10/2025 for similar pain and treated in the emergency department with oral medications (dexamethasone 10 mg, Dilaudid 2 mg, Robaxin 750 mg and Toradol 30 mg IM) with some improvement of her pain. She was prescribed Robaxin and oral morphine with no relief of her pain. She states currently she is having 10/10 pain, she is having difficulty moving, she denied loss of bowel or bladder control, she denied fever, chills, frequency, urgency or dysuria. The patient required hospitalization at [facility] from 09/2024 until 12/19/2024 for intractable lower back pain and fever. Patient's pain was managed with IV pain medications. She is followed up with our spine service as well as with pain management. Patient states she was scheduled for an epidural injection however this had to be canceled secondary to unavailable provider. Related Data Home Medications ?Medication ?Instructions ?Recorded ?Confirmed gabapentin 100 mg capsule 100 mg PO TID 02/14/25 Previous Rx's ?Medication ?Instructions ?Recorded docusate sodium 100 mg capsule 100 mg PO BID #30 caps 12/19/24 ([facility]) methocarbamol 750 mg tablet 750 mg PO Q8H 6 days #18 t abs 02/11/25 morphine 15 mg immediate release 15 mg PO BID PRN pain #7 tabs 02/11/25 tablet Allergies Allergy/AdvReac Type Severity Reaction Status Date / Time iodine Allergy Severe Anaphylaxis Verified 02/14/25 02:46 latex Allergy Unknown Verified 02/14/25 02:46 tramadol Allergy Unknown Verified 02/14/25 02:46 Review of Systems 2 Review of Systems: Yes all other systems are reviewed and are negative [facility] Past Medical History [facility] Narrative: Social history: She denies tobacco, alcohol and drug use. She denies using injection drugs. Medical History Marijuana use Nicotine dependence Alcohol abuse Obesity Hypoglycemia PCOS (polycystic ovarian syndrome) Social History Social History (Updated 12/12/24 @ 20:48 by VALENTÍN Martínez) Household Members: Spouse Housing: Apartment Do you presently have visiting nurse or other home services: No Alcohol intake: current Alcohol intake frequency: a few times a month Comment: refusing bed alarm Patient Tobacco Use Status: Never used Tobacco Years Smoked: 12 Smoked in Last 30 Days: No e-Cigarette/Vaping Use: Currently Using Use of substances other than those prescribed or required for medical reasons: Yes Substance Use Type: Marijuana Advance Directives: No Advance Directives Information Provided: Yes Patient : No service: No Physical Exam 2 Vital Signs: Vital Signs: Last Vital Signs Temp 98.4 F 02/14/25 08:00 Pulse 77 02/14/25 12:25 Resp 12 02/14/25 12:25 BP 113/67 02/14/25 12:25 Pulse Ox 94 02/14/25 12:25 O2 Del Method Room Air 02/14/25 12:25 BMI result Body Mass Index 44.6 Vital signs revealed an elevated blood pressure of 142/89, elevated heart rate of 117, afebrile with a temperature of 98.4 degrees. Exam: General: Awake, moderate to severe distress secondary to her back pain. Initially she was lying on her belly and when I asked her to roll over she had significant difficulty moving on the stretcher to get on her back. Weight 117.9 kg, elevated BMI 44.6 kilograms/meter squared Head: Normocephalic, atraumatic EENT: PERRL, sclera and conjunctiva are normal, mouth with no erythema or exudates Neck: Supple, no adenopathy Lung: breath sounds symmetric, no wheezing, no rales and no rhonchi Chest: symmetric movement, nontender Heart: regular rate and rhythm, normal S1, S2 no murmurs or rubs Abdomen: soft, non-tender, nondistended, normal bowel sounds Back: Patient has tenderness palpation over her lower lumbar spine and lumbar paraspinal muscles bilaterally, she has limited ability to lift her legs off the stretcher secondary to her pain but does not have demonstrated weakness, she has positive bilateral straight leg raises Extremities: no deformities, moves all extremities symmetrically, no edema Neuro: Awake, alert, oriented, normal speech, cranial nerves 2-12 intact, moves upper extremities symmetrically, difficulty moving her lower extremities secondary to pain Psych: Pleasant, cooperative Medications Administered Discontinued Medications Generic Name Dose Route Start Last Admin Trade Name Freq PRN Reason Stop Dose Admin Ketorolac Tromethamine 15 mg 02/14/25 05:52 02/14/25 06:22 Ketorolac Tromethamine 15 Mg/Ml Vial IVPUSH 02/14/25 05:53 15 mg ONCE STA Administration Morphine Sulfate 4 mg 02/14/25 05:52 02/14/25 06:22 Morphine Sulfate 4 Mg/Ml Cartridge IVPUSH 02/14/25 05:53 4 mg ONCE STA Administration Protocol Morphine Sulfate 4 mg 02/14/25 06:05 02/14/25 10:16 Morphine Sulfate 4 Mg/Ml Cartridge IVPUSH 4 mg Q15M PRN Administration Pain, Severe (Pain Scale 7-10) Protocol Morphine Sulfate 4 mg 02/14/25 11:35 02/14/25 11:44 Morphine Sulfate 4 Mg/Ml Cartridge IVPUSH 02/14/25 11:36 4 mg ONCE STA Administration Protocol Medical Decision Making Medical Decision Making MDM Narrative: 34-year-old female with a history of alcohol use disorder, hypoglycemia, PCOS, lumbar radiculopathy (MRI 12/13/2024 L5-S1 right central/foraminal disc protrusion and annular fissure with possible mild abutment of the transiting right S1 nerve root), followed by pain management who presents emergency department for evaluation of severe lower bilateral back pain radiating down the back of the right leg to her knee. Patient states she has been having pain since 12/09/2024, pain is gotten worse over the last week. Patient was seen in the emergency department on 02/10/2025 for similar pain and treated in the emergency department with oral medications (dexamethasone 10 mg, Dilaudid 2 mg, Robaxin 750 mg and Toradol 30 mg IM) with some improvement of her pain. She was prescribed Robaxin and oral morphine with no relief of her pain. She states currently she is having 10/10 pain, she is having difficulty moving, she denied loss of bowel or bladder control, she denied fever, chills, frequency, urgency or dysuria. Vital signs revealed elevated heart rate and elevated blood pressure otherwise unremarkable. Exam revealed that she was in distress and had limited ability to move on the stretcher secondary to her back pain. Patient did have pain with palpation over her lumbar spine and over the paraspinal muscles in the lumbar area, she had limited ability to move her lower extremity secondary to pain and did have positive bilateral straight leg raises. Differential diagnosis: ?Includes but is not limited to musculoskeletal injuries, musculoskeletal spasm, disc protrusion, nerve impingement, infectious process, anemia, electrolyte abnormalities Course: 06:16 I ordered a laboratory evaluation on the patient to include ESR and CRP. Patient was ordered to get Toradol 15 mg IV and morphine 4 mg IV. My plan is to treat her pain with morphine 4 mg IV Q 20 minutes x3 more doses to see if we can improve her pain to the point where she can be safely discharged. 11:28 My independent interpretation patient's laboratory evaluation is as follows: WBC elevated 13,100, no anemia with an H&H of 12.1 and 38.0. ESR was elevated 43. CRP elevated 2.94. CMP was unremarkable. Patient received morphine 4 mg IV x4 doses. Patient's pain improved from 10/10 to 8/10. The patient is still appears to be uncomfortable in his unable to move on the stretcher therefore I do not think she will be able to walk. The patient was ordered to get a another dose of morphine 4 mg IV. I will discuss admission for intractable back pain with the covering hospitalist. 12:04 I did discuss the patient's presentation over tiger text with the covering hospitalist, physician development assistant yadi Edgar and the patient will be admitted to the hospitalist service for further treatment. Differential Diagnosis Differential Diagnoses: The differential diagnosis associated with the presentation includes (See above) Admission/Observation Consideration of admission/observation: Escalation of care including admission/observation considered (Yes) Lab Data 02/14/25 06:18 02/14/25 06:18 Labs: Lab Results 02/14/25 Range/Units 06:18 WBC 13.1 H (4.8-10.8) X10*3/uL RBC 4.50 (4.20-5.50) X10*6/uL Hgb 12.1 (12.0-16.0) g/dl Hct 38.0 (37.0-47.0) % MCV 84.4 (80.0-98.0) fL MCH 26.9 L (27.0-33.0) pg MCHC 31.8 (31.0-35.0) g/dl RDW 13.7 (11.0-16.0) % Plt Count 359 D (160-400) X10*3/uL MPV 8.3 L (9.4-12.3) fL Immature Gran % (Auto) 0.6 H (0.0-0.4) % Neut % (Auto) 64.3 (45-73) % Lymph % (Auto) 24.9 (20-40) % [place] % (Auto) 8.9 (2-11) % Eos % (Auto) 1.0 (0-4) % Baso % (Auto) 0.3 (0-2) % Lymph # (Auto) 3.3 (1.2-4.9) X10*3/uL [place] # (Auto) 1.2 (0.1-1.2) X10*3/uL Eos # (Auto) 0.1 (0.0-0.4) X10*3/uL Baso # (Auto) 0.0 (0.0-0.2) X10*3/uL Abs Immat Gran (auto) 0.08 H (0.00-0.03) X10*3/uL Absolute Neuts (auto) 8.4 H (2.0-8.3) x10*3/uL Absolute Nucleated RBC 0.000 (0.0-0.012) X10*3/uL Nucleated RBC % (auto) 0.0 (0.0-0.2) /100WBC ESR 43 H (0-20) MM/HR Sodium 139 (135-145) mmol/L Potassium 3.8 (3.3-5.1) mmol/L Chloride 106 (96-108) mmol/L Carbon Dioxide 22 (22-29) mmol/L Anion Gap 15 (12-20) BUN 10 (9-16) mg/dL Creatinine 0.67 (0.5-1.4) mg/dL Estim Creat Clear Calc 150.8 Estimated GFR > 60 Random Glucose 96 (60-115) mg/dL Calcium 9.3 (8.4-10.2) mg/dL Total Bilirubin 0.2 (0.0-1.0) mg/dL AST 21 (5-31) U/L ALT 15 (0-31) U/L Alkaline Phosphatase 105 (39-117) U/L C-Reactive Protein 2.98 H (< or = 0.50) mg/dL Total Protein 7.2 (6.5-8.0) g/dL Albumin 3.9 (3.5-5.0) g/dL Critical Care Time Critical Care Time Critical Care Time: Yes Total Critical Care Time: 45 Attestation: Critical Care: The patient was critically ill with a high probability of imminent or life threatening deterioration. I spent greater than 30 minutes of discontinuous time evaluating the patient,delivering critical care at the bedside, discussing and evaluating pertinent data with consultants. Critical care time does not include time spent performing separately billable procedures or teaching. Total time spent performing critical care was 45 minutes. Discharge Plan Discharge Clinical Impression: Intractable low back pain Patient Disposition: Admitted As Inpatient
[2025-02-14 06:22] LABS: MANUAL DIFF FLAG NO
[2025-02-14 06:23] LABS: Hematocrit 38.0 % (37.0-47.0); Hemoglobin 12.1 g/dl (12.0-16.0); Imm Gran Abs Auto 0.08 X10*3/uL (0.00-0.03); Imm Gran Pct Auto 0.6 % (0.0-0.4); Lymphocytes Absolute Auto 3.3 X10*3/uL (1.2-4.9); Mean Corpuscular HGB Conc 31.8 g/dl (31.0-35.0); Mean Corpuscular Hemoglobin 26.9 pg (27.0-33.0); Mean Corpuscular Volume 84.4 fL (80.0-98.0); NRBC Abs Auto 0.000 X10*3/uL (0.0-0.012); NRBC Pct Auto 0.0 /100WBC (0.0-0.2); Platelet Count 359 X10*3/uL (160-400); Red Blood Count 4.50 X10*6/uL (4.20-5.50); White Blood Count 13.1 X10*3/uL (4.8-10.8)
[2025-02-14 06:37] LABS: Alanine Aminotransferase 15 U/L (0-31); Albumin Level 3.9 g/dL (3.5-5.0); Alkaline Phosphatase 105 U/L (39-117); Anion Gap 15 (12-20); Aspartate Amino Transferase 21 U/L (5-31); Blood Urea Nitrogen 10 mg/dL (9-16); Calcium 9.3 mg/dL (8.4-10.2); Carbon Dioxide 22 mmol/L (22-29); Chloride 106 mmol/L (96-108); Creatinine Clr Calc Pharmacy 150.8; Estimated Glomerular Filt Rate > 60; Potassium 3.8 mmol/L (3.3-5.1); Sodium 139 mmol/L (135-145); Total Protein 7.2 g/dL (6.5-8.0)
[2025-02-14 07:34] LABS: Erythrocyte Sedimentation Rate 43 MM/HR (0-20)
--- NOTE | 2025-02-14 10:20 | PC.NURSE ---
Patient stating pain is 9/10. 4th dose of morphine given per patient request. Provider aware. Patient resting at this time. Respiratory rate within normal limits.
--- NOTE | 2025-02-14 13:14 | P.HPHOSP_ITS ---
History of Present Illness Date of Service: 02/14/25 Attending physician on admission: Skyler Grullon Chief Complaint: lower back pain 34-year-old female with past medical history significant for alcohol use disorder, hypoglycemia, PCOS, lumbar radiculopathy who presents to the ED for severe intractable lower back pain radiating towards right lower extremity. MRI was done on 12/13 showing L5-S1 right central/foraminal disc protrusion and annular fissure with possible mild abutment of the right S1 nerve root. Patient states that she visited orthopedic surgery, suggested on seeing pain management for possible epidural shot, which unfortunately had to be rescheduled as provider was not available. Patient at this time pain is 10/10, no alleviating factors. Of note, Patient came to the ED on 02/10 for similar complaints, the patient was given dexamethasone, Dilaudid, Robaxin and Toradol with mild improvement of her pain. Review of Systems 2 Review of Systems: Fourteen point review of systems obtained, negative except as stated above [facility] Medical History Marijuana use Nicotine dependence Alcohol abuse Obesity Hypoglycemia PCOS (polycystic ovarian syndrome) Social History (Updated 12/12/24 @ 20:48 by VALENTÍN Martínez) Household Members: Spouse Housing: Apartment Do you presently have visiting nurse or other home services: No Alcohol intake: current Alcohol intake frequency: a few times a month Comment: refusing bed alarm Patient Tobacco Use Status: Never used Tobacco Years Smoked: 12 Smoked in Last 30 Days: No e-Cigarette/Vaping Use: Currently Using Use of substances other than those prescribed or required for medical reasons: Yes Substance Use Type: Marijuana Advance Directives: No Advance Directives Information Provided: Yes Patient : No service: No Meds Allergies Allergy/AdvReac Type Severity Reaction Status Date / Time iodine Allergy Severe Anaphylaxis Verified 02/14/25 02:46 latex Allergy Unknown Verified 02/14/25 02:46 tramadol Allergy Unknown Verified 02/14/25 02:46 Active Medications: Current Medications Acetaminophen (Acetaminophen 325 Mg Tablet) 650 mg PO Q6H PRN PRN Reason: Pain, Mild 1-3,fever,headache Calcium Carbonate (Calcium Carbonate 750 Mg Tab.Chew) 750 mg PO Q4H PRN PRN Reason: Heartburn Duloxetine HCl (Duloxetine Hcl 30 Mg Capsule.Dr) 30 mg PO DAILY [facility] Heparin Sodium (Porcine) (Heparin Sodium,Porcine 5,000 Unit/Ml Vial) 5,000 unit SUBCUT Q12H [facility] Hydromorphone HCl (Hydromorphone Hcl 1 Mg/Ml Syringe) 1 mg IVPUSH Q4H PRN; Protocol PRN Reason: Pain, Severe (Pain Scale 7-10) Lidocaine (Lidocaine 4 % Patch Adh..Patch) 1 patch TRANSDERMA DAILY [facility]; Protocol Stop: 02/19/25 12:59 Magnesium Hydroxide (Milk Of Magnesia 30 Ml Oral.Susp) 30 ml PO DAILY PRN PRN Reason: Constipation Melatonin (Melatonin 3 Mg Tablet) 6 mg PO BEDTIME PRN PRN Reason: Insomnia Senna/Docusate Sodium (Sennosides/Docusate Sodium Tablet) 1 tab PO BID PRN PRN Reason: Constipation Sodium Chloride (0.9 % Sodium Chloride Flush 3 Ml Syringe) 3 ml IVFLUSH QSHIFT [facility] Home Medications ?Medication ?Instructions ?Recorded ?Confirmed ?Last Taken ?Type gabapentin 100 mg capsule 100 mg PO TID 02/14/25 Unkn own History Physical Exam 2 Vital Signs and Narrative: Vital Signs: Last Vital Signs Temp 98.4 F 02/14/25 08:00 Pulse 77 02/14/25 12:25 Resp 12 02/14/25 12:25 BP 113/67 02/14/25 12:25 Pulse Ox 94 02/14/25 12:25 O2 Del Method Room Air 02/14/25 12:25 BMI result Body Mass Index 44.6 General: AxOx3, in pain Head: AT/NC ENT: Moist mucous membranes Neck: supple CVS; RRR, S1 S2 normal Lungs: Clear bilateral breath sounds, no wheezes or crackles Abd: Soft non tender, non distended Ext: No edema and no calf tenderness MSK: moving all 4 limbs, tenderness on light palpation of lower back. Skin: No cyanosis or edema Psych: Cooperative with exam Results Labs 02/14/25 06:18 02/14/25 06:18 Labs: Laboratory Results - last 24 hr 02/14/25 06:18 MCV 84.4 MCH 26.9 L MCHC 31.8 RDW 13.7 Plt Count 359 D MPV 8.3 L Immature Gran % (Auto) 0.6 H Neut % (Auto) 64.3 Lymph % (Auto) 24.9 [place] % (Auto) 8.9 Eos % (Auto) 1.0 Baso % (Auto) 0.3 Lymph # (Auto) 3.3 [place] # (Auto) 1.2 Eos # (Auto) 0.1 Baso # (Auto) 0.0 Abs Immat Gran (auto) 0.08 H Absolute Neuts (auto) 8.4 H Absolute Nucleated RBC 0.000 Nucleated RBC % (auto) 0.0 ESR 43 H Anion Gap 15 Estim Creat Clear Calc 150.8 Estimated GFR > 60 Random Glucose 96 Calcium 9.3 Total Bilirubin 0.2 AST 21 ALT 15 Alkaline Phosphatase 105 C-Reactive Protein 2.98 H Total Protein 7.2 Albumin 3.9 Assessment and Plan (1) Lumbar radiculopathy: Status: Acute Plan Assessment: 34-year-old female who presented to the ED for intractable lower back pain, not alleviated with pain medications. With MRI done on 12 13 showing L5-S1 right central foraminal disc protrusion with annular fissure with mild abutment of transitioning right S1 nerve root. Patient plan on having epidural shot, however no provider was available at the time. Radiculopathy Intractable back pain -we will schedule lidocaine patch, duloxetine 30 mg ordered, tizanidine ordered. We will also give Dilaudid p.r.n., patient recently received 4 mg of morphine with mild improvement of symptoms. -continue with heating pads -patient will require follow up with Orthopedic surgery as well as pain management -once improved, to consider PT/OT -monitor for any saddle anesthesia Leukocytosis, likely reactive in the setting of dexamethasone -continue to monitor labs as well as for fevers. Constipation -bowel regimen initiated FEN: not indicated, replete as needed, regular GI PPx: NI DVT PPx: Heparin Code Status: Full code Disposition: All questions and concerns with the patient were answered to satisfaction. All pertinent clinical documents, images and labs were reviewed. DISCLAIMER: This document was created using voice recognition software. Any mistakes in the prescription are unintentional. An attempt was made to focus for accuracy, but to expedite availability, some errors may persist. Please contact with any need for correction or further clarification Total time managing care of this patient today: 55 minutes. Quality Stroke Does the patient have a stroke diagnosis?: No VTE Prior VTE?: No VTE Risk Level:: Medical - low VTE Device Contraindication: Treatment Not Indicated VTE Drug Contraindication: N/A - Med Ordered
--- NOTE | 2025-02-14 13:27 | PHA.MEDREC ---
Pharmacy Consult ? Medication Reconciliation Pharmacy has completed the medication reconciliation.Med rec complete, patient had 3 rx bottles in her purse and stated this was all she was taking.
[2025-02-14 13:36] LABS: Appearance Urine Cloudy; Glucose Urine UA Negative (Negative); PH 5.0 (5.0-9.0); Specific Gravity - Urine 1.020 (1.005-1.025); UMIC TRIGGER UACC YES
[2025-02-14 13:38] LABS: UACC Culture Trigger YES
[2025-02-14 13:45] LABS: Cannabinoid Screen Urine POSITIVE (Not Detect)
--- NOTE | 2025-02-14 14:54 | PC.NURSE ---
Report to Natalie GUDINO in overflow
[2025-02-14] MEDS: 0.9 % Sodium Chloride Flush 3 ML SYRINGE IVFLUSH ×2 (16:31→20:39)
[2025-02-14] MEDS: Milk of Magnesia 30 ML ORAL.SUSP PO (20:42)
[2025-02-14 21:47] LABS: Glucose, Whole Blood 104 mg/dL (60-115)
[2025-02-15] VITALS (7 sets, daily range): BP systolic 107–120; BP diastolic 52–72; PULSE 74–90; RESP 14–18; TEMP 36–36.5; O2SAT 93–97
--- NOTE | 2025-02-15 | ECG_ITS ---
Test Reason : chest pressure Blood Pressure : */* mmHG Vent. Rate : 80 BPM Atrial Rate : 80 BPM P-R Int : 196 ms QRS Dur : 102 ms QT Int : 376 ms P-R-T Axes : 29 58 32 degrees QTcB Int : 433 ms Poor data quality, interpretation may be adversely affected Normal sinus rhythm Normal ECG No previous ECGs available Referred By: Kathryn Pantoja Electronically Signed By: CINTHIA MEYER MD
[2025-02-15] MEDS: 0.9 % Sodium Chloride Flush 3 ML SYRINGE IVFLUSH ×3 (09:56→20:00)
[2025-02-15] MEDS: oxyCODONE HCl ER 10 MG TAB.ER.12H PO ×2 (09:56→20:15)
--- NOTE | 2025-02-15 11:21 | MHC.CM.PN ---
PT LIVES W/HUSBNAND PT IS INDEPEDENT AND WORKING PCP LIST GIVEN TO PT DC PLAN HOME N/S
--- NOTE | 2025-02-15 14:13 | HO.PM.IMPN ---
Subjective Subjective Date of Service: 02/15/25 Interval History: Patient seen examined at bedside this morning, patient states that she is still experiencing pain, however was able to sleep overnight. Patient states that she does not want to have lidocaine patch as it is not as helpful for her, prefers heating pads. No acute overnight events. Review of Systems Review of Systems: Yes all other systems are reviewed and are negative Physical Exam Exam: Exam: General: AxOx3, No acute distress Head: AT/NC ENT: Moist mucous membranes Neck: supple CVS; RRR, S1 S2 normal Lungs: Clear bilateral breath sounds, no wheezes or crackles Abd: Soft non tender, non distended Ext: No edema and no calf tenderness MSK: moving all 4 limbs, lower back tenderness Skin: No cyanosis or edema Psych: Cooperative with exam Vital Signs: Vital Signs: Last Vital Signs Temp 97.7 F 02/15/25 12:00 Pulse 76 02/15/25 12:00 Resp 16 02/15/25 12:00 BP 111/61 02/15/25 12:00 Pulse Ox 97 02/15/25 12:00 O2 Del Method Room Air 02/15/25 12:00 BMI result Body Mass Index 44.6 Objective Data Active Medications Acetaminophen (Acetaminophen 325 Mg Tablet) 650 mg PO Q6H PRN PRN Reason: Pain, Mild 1-3,fever,headache Calcium Carbonate (Calcium Carbonate 750 Mg Tab.Chew) 750 mg PO Q4H PRN PRN Reason: Heartburn Duloxetine HCl (Duloxetine Hcl 30 Mg Capsule.) 30 mg PO DAILY [facility] Last Admin: 02/15/25 08:30 Dose: 30 mg Documented By: HELDER Gabapentin (Gabapentin 300 Mg Capsule) 300 mg PO BID [facility] Last Admin: 02/15/25 08:30 Dose: 300 mg Documented By: HELDER Heparin Sodium (Porcine) (Heparin Sodium,Porcine 5,000 Unit/Ml Vial) 5,000 unit SUBCUT Q12H [facility] Last Admin: 02/15/25 12:17 Dose: 5,000 unit Documented By: HELDER Hydromorphone HCl (Hydromorphone Hcl 1 Mg/Ml Syringe) 1 mg IVPUSH Q4H PRN; Protocol PRN Reason: Pain, Severe (Pain Scale 7-10) Last Admin: 02/15/25 08:31 Dose: 1 mg Documented By: HELDER Lidocaine (Lidocaine 4 % Patch Adh..Patch) 1 patch TRANSDERMA DAILY [facility]; Protocol Stop: 02/19/25 12:59 Last Admin: 02/15/25 08:30 Dose: Not Given Documented By: HELDER Non-Admin Reason: Patient Refused Magnesium Hydroxide (Milk Of Magnesia 30 Ml Oral.Susp) 30 ml PO DAILY PRN PRN Reason: Constipation Last Admin: 02/14/25 20:42 Dose: 30 ml Documented By: CARLA Melatonin (Melatonin 3 Mg Tablet) 6 mg PO BEDTIME PRN PRN Reason: Insomnia Methocarbamol (Methocarbamol 750 Mg Tablet) 750 mg PO Q8H [facility] Last Admin: 02/15/25 10:10 Dose: Not Given Documented By: HELDER Non-Admin Reason: Physician Held Med Ondansetron HCl (Ondansetron Hcl 4 Mg/2 Ml Vial) 4 mg IVPUSH Q8H PRN PRN Reason: Nausea and Vomiting Last Admin: 02/14/25 23:46 Dose: 4 mg Documented By: CARLA Oxycodone HCl (Oxycodone Hcl Er 10 Mg Tab.Er.12h) 10 mg PO BID [facility] Last Admin: 02/15/25 09:56 Dose: 10 mg Documented By: HELDER Senna/Docusate Sodium (Sennosides/Docusate Sodium Tablet) 1 tab PO BID PRN PRN Reason: Constipation Last Admin: 02/14/25 20:42 Dose: 1 tab Documented By: CARLA Sodium Chloride (0.9 % Sodium Chloride Flush 3 Ml Syringe) 3 ml IVFLUSH QSHIFT [facility] Last Admin: 02/15/25 09:56 Dose: 3 ml Documented By: HELDER Tizanidine HCl (Tizanidine Hcl 4 Mg Tablet) 2 mg PO TID [facility] Last Admin: 02/15/25 09:55 Dose: 2 mg Documented By: HELDER Labs 02/14/25 06:18 02/14/25 06:18 Labs: Laboratory Results - last 24 hr 02/14/25 21:39 POC Glucose 104 Microbiology Microbiology Results: Microbiology 02/14/25 Unknown Urine Culture - Final Urine clean catch - Clean Catch Midstream Assessment and Plan (1) Intractable low back pain: Status: Acute (2) Lumbar radiculopathy: Status: Acute Plan Assessment: 34-year-old female who presented to the ED for intractable lower back pain, not alleviated with pain medications. With MRI done on 12 13 showing L5-S1 right central foraminal disc protrusion with annular fissure with mild abutment of transitioning right S1 nerve root. Patient plan on having epidural shot, however no provider was available at the time. Radiculopathy Intractable back pain, improving -continue duloxetine 30 mg ordered, tizanidine. We will also give Dilaudid p.r.n., oxycontin ordered. patient refused lidocaine patches -continue with heating pads -patient will require follow up with Orthopedic surgery as well as pain management -once improved, to consider PT/OT -monitor for any saddle anesthesia Leukocytosis, likely reactive in the setting of dexamethasone -continue to monitor labs as well as for fevers. -labs ordered Constipation -bowel regimen initiated FEN: not indicated, replete as needed, regular GI PPx: NI DVT PPx: Heparin Code Status: Full code Disposition: All questions and concerns with the patient were answered to satisfaction. All pertinent clinical documents, images and labs were reviewed. DISCLAIMER: This document was created using voice recognition software. Any mistakes in the prescription are unintentional. An attempt was made to focus for accuracy, but to expedite availability, some errors may persist. Please contact with any need for correction or further clarification Total time managing care of this patient today: 35 minutes. Quality Stroke Does the patient have a stroke diagnosis?: No VTE Prior VTE?: No VTE Risk Level:: Medical - low VTE Device Contraindication: Treatment Not Indicated VTE Drug Contraindication: N/A - Med Ordered
--- NOTE | 2025-02-15 14:29 | PC.NURSE ---
0949- Per Dr Bassam Grullon, [place] methocarbamol
[2025-02-15] MEDS: Milk of Magnesia 30 ML ORAL.SUSP PO (20:16)
--- NOTE | 2025-02-15 23:42 | PM.EVENT ---
Event Note Date of Service: 02/15/25 Event Note: pt complaining of new tingling in R face and R arm, was laying on L side in bed. no neck pain but still having significant low back pain. also having 10/10 chest pressure. BP 92/55, O2 sat 99%, HR 96, T 97.6, RR 18. BP improved to 109 systolic R arm ant 120 systolic left arm. tingling resolving. no numbness on face, facial droop, or cranial nerve deficits. unable to assess muscle strength in BUE and BLE due to pain. will order EKG and trop due to chest pressure. give Dilaudid now. case discussed with Dr Pantoja Time Spent With Patient Time: Total time managing care of this patient today ____ minutes.
[2025-02-16 00:37] LABS: Delay - Chemistry DELAY
[2025-02-16 01:21] LABS: Troponin-I High Sensitivity < 2.7 ng/L (<3.5-17.0)
--- NOTE | 2025-02-16 03:01 | PC.NURSE ---
02/15/2025, 2315; pt yelling out in pain. Upon entering room, pt states face, right arm and chest have tingling sensations, while chest also had pressure. Pt in 01/15 pain, VS: T 97.6, HR 96, BP 92/55, O2 99 on room air, RR 18. Provider Kit notified and came to bedside to check pt. EKG and troponin ordered. BP 120/58 after provider assessment and pt medicated for pain per JUN.
[2025-02-16 03:54] VITALS: BP 122/58; PULSE 99; RESP 18; TEMP 36.6; O2SAT 97
[2025-02-16 06:11] LABS: Hematocrit 38.1 % (37.0-47.0); Hemoglobin 12.7 g/dl (12.0-16.0); Mean Corpuscular HGB Conc 33.3 g/dl (31.0-35.0); Mean Corpuscular Hemoglobin 27.5 pg (27.0-33.0); Mean Corpuscular Volume 82.5 fL (80.0-98.0); NRBC Abs Auto 0.000 X10*3/uL (0.0-0.012); NRBC Pct Auto 0.0 /100WBC (0.0-0.2); Platelet Count 399 X10*3/uL (160-400); Red Blood Count 4.62 X10*6/uL (4.20-5.50); White Blood Count 11.3 X10*3/uL (4.8-10.8)
[2025-02-16 08:28] VITALS: BP 106/56; PULSE 86; RESP 18; TEMP 36.4; O2SAT 93
[2025-02-16] MEDS: 0.9 % Sodium Chloride Flush 3 ML SYRINGE IVFLUSH ×3 (09:20→20:23)
[2025-02-16] MEDS: oxyCODONE HCl ER 10 MG TAB.ER.12H 20 MG PO ×2 (09:20→20:20)
[2025-02-16] MEDS: Milk of Magnesia 30 ML ORAL.SUSP PO (11:20)
[2025-02-16 15:54] VITALS: BP 96/47; PULSE 80; RESP 18; TEMP 36.5; O2SAT 94
--- NOTE | 2025-02-16 15:54 | P.PNIM_ITS ---
Subjective Subjective Date of Service: 02/16/25 Interval History: Patient seen examined at bedside this morning, patient states that she persists with pain, and is having spasms about every 4 hours, wishes to have epidural shot on sooner. Patient mentions that the OxyContin helped decrease patient's pain. Review of Systems Review of Systems: Yes all other systems are reviewed and are negative Physical Exam 2 Exam: Exam: General: AxOx3, No acute distress Head: AT/NC ENT: Moist mucous membranes Neck: supple CVS; RRR, S1 S2 normal Lungs: Clear bilateral breath sounds, no wheezes or crackles Abd: Soft non tender, non distended Ext: No edema and no calf tenderness MSK: moving all 4 limbs, lower back tenderness, improving Skin: No cyanosis or edema Psych: Cooperative with exam Neurology: no focal deficit Vital Signs: Vital Signs: Last Vital Signs Temp 97.6 F 02/16/25 08:28 Pulse 86 02/16/25 08:28 Resp 18 02/16/25 08:28 BP 106/56 L 02/16/25 08:28 Pulse Ox 93 02/16/25 08:28 O2 Del Method Room Air 02/16/25 08:28 BMI result Body Mass Index 44.6 Objective Data Active Medications Acetaminophen (Acetaminophen 325 Mg Tablet) 650 mg PO Q6H PRN PRN Reason: Pain, Mild 1-3,fever,headache Calcium Carbonate (Calcium Carbonate 750 Mg Tab.Chew) 750 mg PO Q4H PRN PRN Reason: Heartburn Duloxetine HCl (Duloxetine Hcl 30 Mg Capsule.) 30 mg PO DAILY [facility] Last Admin: 02/16/25 09:20 Dose: 30 mg Documented By: HELDER Gabapentin (Gabapentin 300 Mg Capsule) 300 mg PO BID [facility] Last Admin: 02/16/25 09:19 Dose: 300 mg Documented By: HELDER Heparin Sodium (Porcine) (Heparin Sodium,Porcine 5,000 Unit/Ml Vial) 5,000 unit SUBCUT Q12H [facility] Last Admin: 02/16/25 11:14 Dose: 5,000 unit Documented By: HELDER Hydromorphone HCl (Hydromorphone Hcl 1 Mg/Ml Syringe) 1 mg IVPUSH Q4H PRN; Protocol PRN Reason: Pain, Severe (Pain Scale 7-10) Last Admin: 02/16/25 13:41 Dose: 1 mg Documented By: HELDER Lidocaine (Lidocaine 4 % Patch Adh..Patch) 1 patch TRANSDERMA DAILY [facility]; Protocol Stop: 02/19/25 12:59 Last Admin: 02/16/25 09:58 Dose: Not Given Documented By: HELDER Non-Admin Reason: Patient Refused Magnesium Hydroxide (Milk Of Magnesia 30 Ml Oral.Susp) 30 ml PO DAILY PRN PRN Reason: Constipation Last Admin: 02/16/25 11:20 Dose: 30 ml Documented By: HELDER Melatonin (Melatonin 3 Mg Tablet) 6 mg PO BEDTIME PRN PRN Reason: Insomnia Ondansetron HCl (Ondansetron Hcl 4 Mg/2 Ml Vial) 4 mg IVPUSH Q8H PRN PRN Reason: Nausea and Vomiting Last Admin: 02/14/25 23:46 Dose: 4 mg Documented By: CARLA Oxycodone HCl (Oxycodone Hcl Er 10 Mg Tab.Er.12h) 20 mg PO BID [facility] Last Admin: 02/16/25 09:20 Dose: 20 mg Documented By: HELDER Senna/Docusate Sodium (Sennosides/Docusate Sodium Tablet) 1 tab PO BID PRN PRN Reason: Constipation Last Admin: 02/15/25 20:16 Dose: 1 tab Documented By: KYLAH Sodium Chloride (0.9 % Sodium Chloride Flush 3 Ml Syringe) 3 ml IVFLUSH QSHIFT [facility] Last Admin: 02/16/25 14:45 Dose: 3 ml Documented By: HELDER Tizanidine HCl (Tizanidine Hcl 4 Mg Tablet) 4 mg PO TID [facility] Last Admin: 02/16/25 14:44 Dose: 4 mg Documented By: HELDER Labs 02/16/25 05:40 02/14/25 06:18 Labs: Laboratory Results - last 24 hr 02/16/25 02/16/25 00:01 05:40 MCV 82.5 MCH 27.5 MCHC 33.3 RDW 13.1 Plt Count 399 MPV 8.1 L Absolute Nucleated RBC 0.000 Nucleated RBC % (auto) 0.0 Troponin I High Sens < 2.7 Specimen Comment DELAY Microbiology Microbiology Results: Microbiology 02/14/25 Unknown Urine Culture - Final Urine clean catch - Clean Catch Midstream Assessment and Plan (1) Lumbar radiculopathy: Status: Acute (2) Intractable low back pain: Status: Acute (3) Back pain: Status: Acute Plan Assessment: 34-year-old female who presented to the ED for intractable lower back pain, not alleviated with pain medications. With MRI done on 12 13 showing L5-S1 right central foraminal disc protrusion with annular fissure with mild abutment of transitioning right S1 nerve root. Patient plan on having epidural shot, however no provider was available at the time. Radiculopathy Intractable back pain, improving -continue duloxetine 30 mg, tizanidine increased to 4mg. oxycontin increased to 20mg BID We will also give Dilaudid p.r.n., oxycontin ordered. patient refused lidocaine patches -continue with heating pads -patient will require follow up with Orthopedic surgery as well as pain management -once improved, to consider PT/OT -monitor for any saddle anesthesia Leukocytosis, likely reactive in the setting of dexamethasone, improving -continue to monitor labs as well as for fevers. Constipation -bowel regimen initiated FEN: not indicated, replete as needed, regular GI PPx: NI DVT PPx: Heparin Code Status: Full code Disposition: All questions and concerns with the patient were answered to satisfaction. All pertinent clinical documents, images and labs were reviewed. DISCLAIMER: This document was created using voice recognition software. Any mistakes in the prescription are unintentional. An attempt was made to focus for accuracy, but to expedite availability, some errors may persist. Please contact with any need for correction or further clarification Total time managing care of this patient today: 35 minutes. Quality Stroke Does the patient have a stroke diagnosis?: No VTE Prior VTE?: No VTE Risk Level:: Medical - low VTE Device Contraindication: Treatment Not Indicated VTE Drug Contraindication: N/A - Med Ordered
[2025-02-16 19:06] VITALS: BP 112/59; PULSE 82; RESP 16; TEMP 36.6; O2SAT 96
[2025-02-16 19:10] VITALS: RESP 16
[2025-02-17 00:38] VITALS: BP 112/59
[2025-02-17 03:33] VITALS: BP 122/68; PULSE 79; RESP 18; TEMP 36.6; O2SAT 97
[2025-02-17 07:01] VITALS: BP 143/65; PULSE 92; RESP 16; TEMP 36.1; O2SAT 97
[2025-02-17] MEDS: oxyCODONE HCl ER 10 MG TAB.ER.12H 20 MG PO (08:50)
[2025-02-17] MEDS: 0.9 % Sodium Chloride Flush 3 ML SYRINGE IVFLUSH (08:53)
--- NOTE | 2025-02-17 13:19 | MHC.CM.PN ---
pt dcd home with vna
--- NOTE | 2025-02-17 13:40 | MHC.CM.PN ---
pt does not have a pcp at this time pt reports having n appt in july she will ask for a vna if she needs one at that time
--- NOTE | 2025-02-17 13:41 | P.DS_ITS ---
DS: Providers Provider Date of Service: 02/17/25 Date of admission: 02/14/25 12:05 Date of discharge: 02/17/25 Primary care physician: [facility] Светлана Flannery DS: Diagnosis Discharge Diagnosis (1) Lumbar radiculopathy: Status: Acute (2) Intractable low back pain: Status: Acute (3) Back pain: Status: Acute DS: Summary Hospital Course Hospital Course: From the history and physical by the admitting hospitalist, Skyler Orellana MD, 02/14/25: '34-year-old female with past medical history significant for alcohol use disorder, hypoglycemia, PCOS, lumbar radiculopathy who presents to the ED for severe intractable lower back pain radiating towards right lower extremity. MRI was done on 12/13 showing L5-S1 right central/foraminal disc protrusion and annular fissure with possible mild abutment of the right S1 nerve root. Patient states that she visited orthopedic surgery, suggested on seeing pain management for possible epidural shot, which unfortunately had to be rescheduled as provider was not available. Patient at this time pain is 10/10, no alleviating factors. Of note, Patient came to the ED on 02/10 for similar complaints, the patient was given dexamethasone, Dilaudid, Robaxin and Toradol with mild improvement of her pain.' 34yo F with known L5-S1 right central/foraminal disc protrusion and annular fissure with possible mild abutment of the transiting right S1 nerve root already consulted with [facility] Spine/Neurosurgery and [facility] Pain Management as outpatient admitted for intractable pain treated with tizanidine, ketorolac, duloxetine, oxycodone, and IV hydromorphone. Pain improved somewhat and she was discharged with tizanidine, duloxetine, lidocaine patch, and oxycodone. She will keep her appointment with [facility] Pain Management on 03/02/25 for epidural steroid injection. Outpatient PT recommended. Time Attestation Discharge Coordination Time (in mins): 35 Quality: Safe Use of Opioids Does Pt have an Active Cancer Diagnosis on the Problem List?: No Quality: Stroke Does the patient have a stroke diagnosis?: No Physical Exam Vital Signs: Vital Signs: Last Vital Signs Temp 96.9 F 02/17/25 07:01 Pulse 92 02/17/25 07:01 Resp 16 02/17/25 07:01 BP 143/65 H 02/17/25 07:01 Pulse Ox 97 02/17/25 07:01 O2 Del Method Room Air 02/17/25 07:01 BMI result Body Mass Index 44.6 Gen: in no acute distress HEENT: sclera anicteric, moist mucus membranes Neck: supple Lungs: clear to auscultation bilaterally Heart: regular rate and rhythm, no murmurs Abd: soft, non-tender, non-distended, obese Ext: no edema Skin: warm/well-perfused Neuro: alert and oriented x3, no focal findings Psych: appropriate affect DS: Data Data Completed and Pending Completed studies during hospitalization [Text1]: Laboratory Results WBC 11.3 X10*3/uL (4.8-10.8) H 02/16/25 05:40 RBC 4.62 X10*6/uL (4.20-5.50) 02/16/25 05:40 Hgb 12.7 g/dl (12.0-16.0) 02/16/25 05:40 Hct 38.1 % (37.0-47.0) 02/16/25 05:40 MCV 82.5 fL (80.0-98.0) 02/16/25 05:40 MCH 27.5 pg (27.0-33.0) 02/16/25 05:40 MCHC 33.3 g/dl (31.0-35.0) 02/16/25 05:40 RDW 13.1 % (11.0-16.0) 02/16/25 05:40 Plt Count 399 X10*3/uL (160-400) 02/16/25 05:40 MPV 8.1 fL (9.4-12.3) L 02/16/25 05:40 Immature Gran % (Auto) 0.6 % (0.0-0.4) H 02/14/25 06:18 Neut % (Auto) 64.3 % (45-73) 02/14/25 06:18 Lymph % (Auto) 24.9 % (20-40) 02/14/25 06:18 [place] % (Auto) 8.9 % (2-11) 02/14/25 06:18 Eos % (Auto) 1.0 % (0-4) 02/14/25 06:18 Baso % (Auto) 0.3 % (0-2) 02/14/25 06:18 Lymph # (Auto) 3.3 X10*3/uL (1.2-4.9) 02/14/25 06:18 [place] # (Auto) 1.2 X10*3/uL (0.1-1.2) 02/14/25 06:18 Eos # (Auto) 0.1 X10*3/uL (0.0-0.4) 02/14/25 06:18 Baso # (Auto) 0.0 X10*3/uL (0.0-0.2) 02/14/25 06:18 Abs Immat Gran (auto) 0.08 X10*3/uL (0.00-0.03) H 02/14/25 06:18 Absolute Neuts (auto) 8.4 x10*3/uL (2.0-8.3) H 02/14/25 06:18 Absolute Nucleated RBC 0.000 X10*3/uL (0.0-0.012) 02/16/25 05:40 Nucleated RBC % (auto) 0.0 /100WBC (0.0-0.2) 02/16/25 05:40 ESR 43 MM/HR (0-20) H 02/14/25 06:18 Sodium 139 mmol/L (135-145) 02/14/25 06:18 Potassium 3.8 mmol/L (3.3-5.1) 02/14/25 06:18 Chloride 106 mmol/L (96-108) 02/14/25 06:18 Carbon Dioxide 22 mmol/L (22-29) 02/14/25 06:18 Anion Gap 15 (12-20) 02/14/25 06:18 BUN 10 mg/dL (9-16) 02/14/25 06:18 Creatinine 0.67 mg/dL (0.5-1.4) 02/14/25 06:18 Estim Creat Clear Calc 150.8 02/14/25 06:18 Estimated GFR > 60 02/14/25 06:18 POC Glucose 104 mg/dL (60-115) 02/14/25 21:39 Random Glucose 96 mg/dL (60-115) 02/14/25 06:18 Calcium 9.3 mg/dL (8.4-10.2) 02/14/25 06:18 Total Bilirubin 0.2 mg/dL (0.0-1.0) 02/14/25 06:18 AST 21 U/L (5-31) 02/14/25 06:18 ALT 15 U/L (0-31) 02/14/25 06:18 Alkaline Phosphatase 105 U/L (39-117) 02/14/25 06:18 Troponin I High Sens < 2.7 ng/L (<3.5-17.0) 02/16/25 00:01 C-Reactive Protein 2.98 mg/dL (< or = 0.50) H 02/14/25 06:18 Total Protein 7.2 g/dL (6.5-8.0) 02/14/25 06:18 Albumin 3.9 g/dL (3.5-5.0) 02/14/25 06:18 Specimen Comment DELAY 02/16/25 00:01 Urine Color Yellow 02/14/25 13:26 Urine Appearance Cloudy 02/14/25 13:26 Urine pH 5.0 (5.0-9.0) 02/14/25 13:26 Ur Specific [place] 1.020 (1.005-1.025) 02/14/25 13:26 Urine Protein Negative mg/dL (Neg-Trace) 02/14/25 13:26 Urine Glucose (UA) Negative mg/dL (Negative) 02/14/25 13:26 Urine Ketones Negative mg/dL (Negative) 02/14/25 13:26 Urine Blood Trace (Negative) H 02/14/25 13:26 Urine Nitrite Negative (Negative) 02/14/25 13:26 Ur Leukocyte Esterase Small (1+) (Negative) H 02/14/25 13:26 Urine RBC 0-2 /HPF (0-2) 02/14/25 13:26 Urine WBC 11-20 /HPF (0-5) H 02/14/25 13:26 Ur Squamous Epith Cells >20 /HPF (0-2) 02/14/25 13:26 Urine Bacteria 4+ (None Seen) 02/14/25 13:26 Hyaline Casts 0-2 /LPF (0-2) 02/14/25 13:26 Urine Opiates Screen POSITIVE (Not Detect) H 02/14/25 13:26 Ur Buprenorphine Scrn Not Detected ng/mL (Not Detect) 02/14/25 13:26 Ur Oxycodone Screen Not Detected ng/mL (Not Detect) 02/14/25 13: Urine Methadone Screen Not Detected ng/mL (Not Detect) 02/14/25 13: Urine Fentanyl Screen Not Detected (Not Detect) 02/14/25 13: Ur Barbiturates Screen Not Detected (Not Detect) 02/14/25 13: Ur Phencyclidine Scrn Not Detected (Not Detect) 02/14/25 13:26 Ur Amphetamines Screen Not Detected (Not Detect) 02/14/25 13: U Benzodiazepines Scrn Not Detected (Not Detect) 02/14/25 13: Urine Cocaine Screen Not Detected (Not Detect) 02/14/25 13: U Marijuana (THC) Screen POSITIVE (Not Detect) H 02/14/25 13:26 Discharge Plan Discharge Patient Disposition: Home Health Service Discharge Diagnosis: lower back pain, radiculopathy Referrals: Physical Therapy - [facility] [Outside] - 1 Week Efren River MD [Physician, Pain Management] - 03/02/25 [facility] [Primary Care Provider, Medical] - 1 Week Discharge Medications: New lidocaine [Lidocaine Pain Relief] 4 % Adhesive Patch,Medicated 1 patch transdermal DAILY Qty: 30 0RF Protocol: Apply to: Apply to: lower back tizanidine 4 mg Tablet 4 mg PO TID Qty: 42 0RF duloxetine 30 mg Capsule,Delayed Release(Dr/Ec) 30 mg PO DAILY Qty: 30 0RF oxycodone 5 mg tablet 5 - 10 mg PO Q4H PRN (Reason: pain, moderate to severe) Qty: 36 0RF Rx Instructions: Partial Fill upon patient request. naloxone [Narcan] 4 mg/actuation spray,non-aerosol 4 mg intranasal Q2M PRN (Reason: opioid overdose) Qty: 2 0RF Rx Instructions: spray 1 dose into ONE nostril; alternate nostrils w each dose until help arrives Continued gabapentin 300 mg Capsule 300 mg PO BID Discontinued methocarbamol 750 mg tablet 750 mg PO Q8H 6 Days Qty: 18 0RF morphine 15 mg tablet 15 mg PO BID PRN (Reason: pain) Qty: 7 0RF Rx Instructions: Partial Fill upon patient request. Discharge Orders: Discharge Order (Routine); Ordered 02/17/25 Ordered By: Jennifer Wilcox Diet: Advance to usual diet Activity on Discharge: As tolerated Stand Alone Forms: Patient Portal Discharge page Print Language: Swiss Care Plan Goals: pain control Health Concerns: lower back pain, radiculopathy Plan of Treatment: change methocarbamol to tizanidine 4 mg 3x a day start duloxetine 30 mg once daily continue gabapentin 300 mg twice daily use lidocaine patch as needed use oxycodone 5-10 mg for breakthrough pain only follow up with Dr River for epidural steroid injection as scheduled 03/02/25 outpatient PT at [facility] Rehab Services Please follow up with your primary care doctor within 1 week. Return to the hospital if you experience recurrent or worsening symptoms. Assessment: See Discharge Summary. Patient Instructions: Pain Management (DC)
--- NOTE | 2025-02-17 13:42 | MHC.CM.PN ---
will order outpt pt
--- NOTE | 2025-02-17 14:05 | PC.NURSE ---
Attempted to explain d/c meds, patient seems confused and unable to understand discharge medication. Even after multiple attempts to explain in a simple way, patient unable to understand, Primary RN sent to see patient, if unable to understand will send in MD.
[2025-02-17 14:23] VITALS: BP 103/67; PULSE 91; RESP 16; TEMP 36.8; O2SAT 94
[2025-02-17 15:31] VITALS: BP 134/68; PULSE 104; RESP 19; TEMP 36; O2SAT 95
--- NOTE | 2025-02-17 15:41 | PC.NURSE ---
Provider Jeri came to bedside and further explained and answer questions regarding patient's discharge medications. Patient was in agreement and okay to continue with discharge.
== END 2025-02-17 15:43 | disposition home or self-care (01) ==
LOC: HO.ED 11:38 → HO.EDOVER 12:39 → HO.S3 19:30
PROVIDERS: Physician Assistant; Admitting Provider Student in an Organized Health Care Education/Training Program; Emergency Provider Emergency Medicine Emergency Medical Services; Visit Provider Family Medicine
DX: M54.16 Radiculopathy, lumbar region (principal); M54.59 Other low back pain; M54.9 Dorsalgia, unspecified; R07.9 Chest pain, unspecified; E28.2 Polycystic ovarian syndrome; D72.829 Elevated white blood cell count, unspecified; K59.00 Constipation, unspecified; Z79.899 Other long term (current) drug therapy
CPT/HCPCS: 36415; 80053; 80307; 81001; 82947; 84484; 85025; 85027; 85652; 86140; 87086; 93005; 96372; 96374; 96375; 96376; 97162; 99221; 99285; J1171; J1644; J1885; J2270; J2405

== ENCOUNTER 2025-02-14 12:05 | Outpatient (BNV) | payer MEDICAID, SELFPAY | END 2025-02-15 23:45 | PROVIDERS: Admitting Provider Student in an Organized Health Care Education/Training Program; Emergency Provider Emergency Medicine Emergency Medical Services; Visit Provider Internal Medicine Cardiovascular Disease | DX: R07.89 Other chest pain (principal) | CPT/HCPCS: 93010 ==

== ENCOUNTER → 2025-02-14 12:05 | Outpatient (BNV) | payer MEDICAID, SELFPAY | PROVIDERS: Admitting Provider Student in an Organized Health Care Education/Training Program; Emergency Provider Emergency Medicine Emergency Medical Services; Visit Provider Student in an Organized Health Care Education/Training Program | DX: M54.59 Other low back pain (principal); M54.16 Radiculopathy, lumbar region | CPT/HCPCS: 99232; 99499 ==

== ENCOUNTER 2025-02-23 02:57 | Emergency (ER) | payer MEDICAID, SELFPAY ==
[2025-02-23 03:02] VITALS: BP 150/96; PULSE 106; O2SAT 100
[2025-02-23 03:06] VITALS: BP 126/60; PULSE 95; RESP 20; TEMP 37; O2SAT 99; BMI 44.6
[2025-02-23 05:22] LABS: Hematocrit 39.5 % (37.0-47.0); Hemoglobin 13.1 g/dl (12.0-16.0); Imm Gran Abs Auto 0.09 X10*3/uL (0.00-0.03); Imm Gran Pct Auto 0.7 % (0.0-0.4); Lymphocytes Absolute Auto 2.7 X10*3/uL (1.2-4.9); MANUAL DIFF FLAG NO; Mean Corpuscular HGB Conc 33.2 g/dl (31.0-35.0); Mean Corpuscular Hemoglobin 27.1 pg (27.0-33.0); Mean Corpuscular Volume 81.8 fL (80.0-98.0); NRBC Abs Auto 0.000 X10*3/uL (0.0-0.012); NRBC Pct Auto 0.0 /100WBC (0.0-0.2); Platelet Count 405 X10*3/uL (160-400); Red Blood Count 4.83 X10*6/uL (4.20-5.50); White Blood Count 13.7 X10*3/uL (4.8-10.8)
[2025-02-23] MEDS: Lactated Ringers 1,000 ML 999 ML IV (05:36)
[2025-02-23] MEDS: diazePAM 10 MG/2 ML CARTRIDGE 5 MG IVPUSH (05:36)
[2025-02-23 05:43] LABS: Alanine Aminotransferase 26 U/L (0-31); Albumin Level 4.4 g/dL (3.5-5.0); Alkaline Phosphatase 104 U/L (39-117); Anion Gap 15 (12-20); Aspartate Amino Transferase 22 U/L (5-31); Blood Urea Nitrogen 8 mg/dL (9-16); Calcium 10.0 mg/dL (8.4-10.2); Carbon Dioxide 23 mmol/L (22-29); Chloride 103 mmol/L (96-108); Creatinine Clr Calc Pharmacy 131.2; Estimated Glomerular Filt Rate > 60; Potassium 3.6 mmol/L (3.3-5.1); Sodium 137 mmol/L (135-145); Total Protein 8.0 g/dL (6.5-8.0)
[2025-02-23 06:19] VITALS: BP 124/69; PULSE 78; RESP 16; TEMP 36.8; O2SAT 96
[2025-02-23] MEDS: Ketamine HCl/NS 50 MG/5 ML SYRINGE 36 MG IVPUSH (06:21)
--- NOTE | 2025-02-23 07:28 | PC.NURSE ---
report taken from previous rn at 0700 pt is resting comfortably, suction is at the ready, she is not on o2. pt is awaiting eval by case mgt, she has her call be;ll and fall precautions are in place. she is aware of her plan of care.
--- NOTE | 2025-02-23 07:38 | ED.BACK ---
HPI - Back Pain/Injury General Chief Complaint: Back Pain/Injury Stated Complaint: lower back pain Time Seen by Provider: 02/23/25 04:53 Source: patient and EMS Mode of arrival: EMS Limitations: no limitations History of Present Illness ED Provider: Dr. Barbara Boyd HPI Narrative: 34-year-old female with a history of alcohol use disorder, PCOS, lumbar radiculopathy, followed by pain management presenting with continued low back pain radiating down her right leg to the knee that has been ongoing since the beginning of December. Pain continues to worsen. She is scheduled to have an epidural injection on 03/02/2025 however, she could not wait to have this procedure done. Has been taking oxycodone, gabapentin, tizanidine and duloxetine as prescribed without any significant relief of pain. No reported fever. Denies loss of bowel or bladder control. Denies history of IV drug use. Does occasionally use marijuana. Denies bowel changes, urinary complaints, chest pain or difficulty breathing, known sick contacts or travel. During patient's last admission last week, she refused physical therapy and rehab placement because she was ?scared of what might happen and that she might not get her pain medications while at inpatient rehab?. Related Data Previous Rx's ?Medication ?Instructions ?Recorded duloxetine 30 mg capsule,delayed 30 mg PO DAILY #30 caps 02/17/25 release gabapentin 300 mg capsule 300 mg PO BID #60 caps 02/17/25 lidocaine 4 % topical patch 1 patch transdermal DAILY #30 ea 02/17/25 (Lidocaine Pain Relief) tizanidine 4 mg tablet 4 mg PO TID #42 tabs 02/17/25 Allergies Allergy/AdvReac Type Severity Reaction Status Date / Time iodine Allergy Severe Anaphylaxis Verified 02/23/25 03:07 latex Allergy Unknown Verified 02/23/25 03:07 tramadol Allergy Unknown Verified 02/23/25 03:07 Review of Systems Review of Systems: As per HPI, full review of systems performed and negative but for the above mentioned pertinent positives and negatives. [facility] Past Medical History Medical History Marijuana use Nicotine dependence Alcohol abuse Obesity Hypoglycemia PCOS (polycystic ovarian syndrome) Social History Social History Household Members: Spouse Housing: Apartment Do you presently have visiting nurse or other home services: No Alcohol intake: current Alcohol intake frequency: a few times a month Comment: refusing bed alarm Patient Tobacco Use Status: Never used Tobacco Years Smoked: 12 Smoked in Last 30 Days: No e-Cigarette/Vaping Use: Currently Using Second Hand Smoke Exposure: No Use of substances other than those prescribed or required for medical reasons: Yes Substance Use Type: Marijuana Advance Directives: No Advance Directives Information Provided: Yes Patient : No service: No Physical Exam Exam: Exam: GENERAL: Anxious, tearful. SKIN: Normal skin color for ethnicity, warm, dry, intact, no rashes noted. HEENT: Normocephalic, atraumatic, no stridor, posterior oropharynx nonerythematous, dentition intact, EOMI. NECK: Soft, supple, full ROM, midline structures nontender, no step-offs, no deformities, no lymphadenopathy. CHEST: Heart regular tachycardia, no murmurs, symmetric chest rise and fall, no crepitus. PULMONARY: Clear to auscultation bilaterally, no labored breathing, no wheezes/rhales/ rhonchi. ABDOMINAL: Soft, nondistended, nontender, positive bowel sounds in all quadrants. : Deferred. MUSCULOSKELETAL: Normal tone, full range of motion, no deformities, no peripheral edema, midline spine tenderness L5/S1, no step-offs, neurovascularly intact distally, positive straight leg raise on the right side at approximately 45?. NEURO: Alert and oriented x3, CN II through XII intact, equal strength and sensation bilateral upper and lower extremities, no focal neurologic deficits. PSYCHIATRIC: Anxious affect, tearful, fluid speech, good eye contact and appropriate demeanor. Vital Signs: Vital Signs: Last Vital Signs Temp 97 F 02/24/25 05:04 Pulse 86 02/24/25 05:04 Resp 17 02/24/25 06:48 BP 131/91 H 02/24/25 05:04 Pulse Ox 99 02/24/25 05:04 O2 Del Method Room Air 02/24/25 05:04 BMI result Body Mass Index 44.6 Course Course Course Narrative: 02/23/25 09:51 SCOTTY Kebede: Physician observation continued. RN reports that patient is complaining of back pain/ spasms. Upon review of [facility] it appears patient takes tizanidine and oxycodone for her pain at home. Orders placed in computer, RN aware. Reevaluation(s) Reevaluation #1: 02/24/25 08:28 Vlad Turcios PA-C: Patient was experiencing increased lumbar back pain overnight, which is the chief complaint upon presentation to the ED. PRN orders for oxycodone and valium were ordered yesterday. Nursing reports the patient had a dose of toradol around 6 am this morning which seemed to alleviate her pain better than oxycodone. VS stable, pain controlled at this time. Patient is currently awaiting insurance authorization for a bed at [facility] for [facility]. Will continue to monitor and keep pain managed while we await disposition to [facility]. 02/24/25 10:21 Vlad Turcios PA-C: Patient to discharge to [facility] VIA BLS at 1130 today. Will continue to monitor as we await transportation to [facility]. Time: 08:28 Medications Administered Generic Name Dose Route Start Last Admin Trade Name Freq PRN Reason Stop Dose Admin Diazepam 2 mg 02/24/25 08:00 02/24/25 09:40 Diazepam 2 Mg Tablet PO 2 mg Q6H TALIA Administration Oxycodone HCl 10 mg 02/23/25 22:01 02/24/25 04:29 Oxycodone Hcl Immed Release 5 Mg Tablet PO 10 mg Q6H PRN Administration Pain, Severe (Pain Scale 7-10) Discontinued Medications Generic Name Dose Route Start Last Admin Trade Name Freq PRN Reason Stop Dose Admin Dexamethasone Sodium Phosphate 10 mg 02/23/25 05:30 02/23/25 05:36 Dexamethasone Sod Phosphate 10 Mg/Ml Vial IVPUSH 02/23/25 05:31 10 mg ONCE ONE Administration Diazepam 5 mg 02/23/25 05:28 02/23/25 05:36 Diazepam 10 Mg/2 Ml Cartridge IVPUSH 02/23/25 05:29 5 mg STAT STA Administration Diazepam 2 mg 02/24/25 01:15 02/24/25 02:07 Diazepam 2 Mg Tablet PO Not Given Q6H TALIA Diazepam 5 mg 02/24/25 01:50 02/24/25 01:56 Diazepam 10 Mg/2 Ml Cartridge IVPUSH 02/24/25 01:51 5 mg STAT STA Administration Lactated Ringer's 1,000 mls @ 999 mls/hr 02/23/25 05:28 02/23/25 08:20 Lr IV 02/23/25 06:28 Infused .Q1H1M ONE Infusion Ketamine HCl 36 mg 02/23/25 05:28 02/23/25 06:21 Ketamine Hcl/Ns 50 Mg/5 Ml Syringe IVPUSH 02/23/25 05:29 36 mg ONCE ONE Administration Ketorolac Tromethamine 15 mg 02/24/25 05:51 02/24/25 06:02 Ketorolac Tromethamine 15 Mg/Ml Vial IVPUSH 02/24/25 05:52 15 mg ONCE ONE Administration Oxycodone HCl 10 mg 02/23/25 09:51 02/23/25 10:16 Oxycodone Hcl Immed Release 5 Mg Tablet PO 02/23/25 09:52 10 mg ONCE ONE Administration Oxycodone HCl 10 mg 02/23/25 16:37 02/23/25 16:44 Oxycodone Hcl Immed Release 5 Mg Tablet PO 02/23/25 16:38 10 mg ONCE ONE Administration Tizanidine HCl 4 mg 02/23/25 09:51 02/23/25 10:17 Tizanidine Hcl 4 Mg Tablet PO 02/23/25 09:52 4 mg ONCE ONE Administration Tizanidine HCl 4 mg 02/23/25 16:37 02/23/25 16:44 Tizanidine Hcl 4 Mg Tablet PO 02/23/25 16:38 4 mg ONCE ONE Administration Medical Decision Making Medical Decision Making MDM Narrative: Patient presents today with a chief complaint of back pain. Differential diagnosis includes musculoskeletal pain, osseous abnormality such as fracture or tumor, infection, spinal cord pathology such as cauda equina syndrome, ligamentous or disc pathology, vascular abnormalities, among many others. I reviewed the list of red flag features such as trauma, weight loss, abnormal neurological findings such as weakness, bowel or bladder incontinence, saddle paresthesia, as well as history of cancer, IV drug abuse, fever, to list a few. Based on history and physical examination, workup was initiated and results were reviewed. Patient has a history of nerve impingement at S1 as seen on her MRI from 12/13/2024. There is some disc protrusion and mild abutment of the right S1 nerve root. Patient is having a flare-up of her chronic pain without any new trauma or injury. She refused rehab previously but is now requesting rehab. States that she is willing to ?do anything to get this better?. She has an appointment for an injection on the but can not wait that long. We will involve social work and physical therapy. Patient understands and agrees with this plan. Pain is well controlled after a dose of ketamine and Valium, Decadron. Differential Diagnosis Differential Diagnoses: The differential diagnosis associated with the presentation includes (As above) Admission/Observation Consideration of admission/observation: Escalation of care including admission/observation considered Lab Data MDM Lab Attestation statement: I reviewed the patient's lab results. 02/23/25 05:15 02/23/25 05:15 Labs: Lab Results 02/23/25 02/23/25 Range/Units 05:15 19:54 WBC 13.7 H (4.8-10.8) X10*3/uL RBC 4.83 (4.20-5.50) X10*6/uL Hgb 13.1 (12.0-16.0) g/dl Hct 39.5 (37.0-47.0) % MCV 81.8 (80.0-98.0) fL MCH 27.1 (27.0-33.0) pg MCHC 33.2 (31.0-35.0) g/dl RDW 13.2 (11.0-16.0) % Plt Count 405 H (160-400) X10*3/uL MPV 8.1 L (9.4-12.3) fL Immature Gran % (Auto) 0.7 H (0.0-0.4) % Neut % (Auto) 71.2 (45-73) % Lymph % (Auto) 19.5 L (20-40) % [place] % (Auto) 7.6 (2-11) % Eos % (Auto) 0.7 (0-4) % Baso % (Auto) 0.3 (0-2) % Lymph # (Auto) 2.7 (1.2-4.9) X10*3/uL [place] # (Auto) 1.0 (0.1-1.2) X10*3/uL Eos # (Auto) 0.1 (0.0-0.4) X10*3/uL Baso # (Auto) 0.0 (0.0-0.2) X10*3/uL Abs Immat Gran (auto) 0.09 H (0.00-0.03) X10*3/uL Absolute Neuts (auto) 9.7 H (2.0-8.3) x10*3/uL Absolute Nucleated RBC 0.000 (0.0-0.012) X10*3/uL Nucleated RBC % (auto) 0.0 (0.0-0.2) /100WBC Sodium 137 (135-145) mmol/L Potassium 3.6 (3.3-5.1) mmol/L Chloride 103 (96-108) mmol/L Carbon Dioxide 23 (22-29) mmol/L Anion Gap 15 (12-20) BUN 8 L (9-16) mg/dL Creatinine 0.77 (0.5-1.4) mg/dL Estim Creat Clear Calc 131.2 Estimated GFR > 60 Random Glucose 95 (60-115) mg/dL Calcium 10.0 D (8.4-10.2) mg/dL Total Bilirubin 0.4 (0.0-1.0) mg/dL AST 22 (5-31) U/L ALT 26 (0-31) U/L Alkaline Phosphatase 104 (39-117) U/L Total Protein 8.0 (6.5-8.0) g/dL Albumin 4.4 (3.5-5.0) g/dL COVID-19 (STEF) Negative (Negative) COVID-19 Clin Com See Note Radiology Impression Discussion of test interpretation with radiology: I have reviewed the radiologist's reading. External Record Review External record reviewed: Inpatient record and Prior outpatient radiology Prescription Management I considered prescription management with: Pain Medication Chronic Conditions Patient?s care impacted by: Other (Lumbar radiculopathy, alcohol use disorder) Social Determinants Patient?s care significantly limited by Social Determinants of Health including: Other Social Determinant of Health Discharge Plan Discharge Clinical Impression: Lumbar radiculopathy Prescriptions: No Action lidocaine [Lidocaine Pain Relief] 4 % Adhesive Patch,Medicated 1 patch transdermal DAILY Qty: 30 0RF Protocol: Apply to: Apply to: lower back tizanidine 4 mg Tablet 4 mg PO TID Qty: 42 0RF duloxetine 30 mg Capsule,Delayed Release(Dr/Ec) 30 mg PO DAILY Qty: 30 0RF oxycodone 5 mg tablet 5 - 10 mg PO Q4H PRN (Reason: pain, moderate to severe) Qty: 36 0RF Rx Instructions: Partial Fill upon patient request. naloxone [Narcan] 4 mg/actuation spray,non-aerosol 4 mg intranasal Q2M PRN (Reason: opioid overdose) Qty: 2 0RF Rx Instructions: spray 1 dose into ONE nostril; alternate nostrils w each dose until help arrives gabapentin 300 mg Capsule 300 mg PO BID Qty: 60 0RF Referrals: [facility] [Outside] Referral Note: Please work with facility social media intern to either arrange transportation for you appointment on 03/02/25 or to be discharged from facility prior to this appointment. Print Language: German
--- OUTSIDE RECORDS SUMMARY | 2025-02-23 07:58 | XMS_ITS | Clinical Summary ---
Author Organization [facility] Address [address] [place] [address] Phone Care Team Providers Care Screen Operator Name Role Phone Physician, Pcp Unknown [...] Health Screening 06/10/2024 COVID-19 Vaccine (1 - 2024-2 6 season) 2024 Influenza Vaccine (#1) 2024 RSV [...] age to complete this topic Care Teams Screen Operator Relationship Specialty Start Date End Date Physician, Pcp Unknown PCP - General 06/09/24
[2025-02-23 08:35] VITALS: BP 121/68; PULSE 85; RESP 16; TEMP 36.6; O2SAT 95
[2025-02-23] MEDS: oxyCODONE HCl Immed Release 5 MG TABLET 10 MG PO ×3 (10:16→22:18)
--- NOTE | 2025-02-23 10:16 | MHC.CM.ED ---
Addendum entered by Lo Schultz 02/23/25 12:28: [facility] and [facility] are able to offer a bed. [facility] is still reviewing. Met with patient in regards to bed offers. Patient accepts bed at [facility]. Will need [facility] approval from [facility]. Level 1 and MDS will be completed and sent to [facility] and [facility]. Original Note: Received case management consult from Dr Boyd. Patient came to the ER due to back pain. Patient has a history of chronic back pain and has an appointment scheduled with [facility] for an injection on 03/02. Physical therapy eval completed. Short term rehab is recommended. Met with patient in regards to discharge planning. Patient lives with her , uses a walker for mobility and had no services prior to coming to the ER. Patient has a new PCP appointment at [facility] in July. Copy of HCP verified to be on file. Patient agreeable to STR at SNF. Aware referral will be broadcasted locally and bed offers would be discussed. Continue to monitor for d/c needs.
--- NOTE | 2025-02-23 10:26 | PC.NURSE ---
report obtained from ED nurse and patient was brought to OF bed 6. upon her arrival PT came to evaluate patient- she ambulated with walker at that time stated her pain was lessoned due to the medication she was given in the ED. Upon return to bed 6 she began having muscle spasms. Provider was notified and she was medicated per orders provider gave- pt had 8/10 left back pain. pt a&ox3, rr equal/non labored, vitals stable, call babcock within reach, plan of care ongoing
[2025-02-23 14:00] VITALS: BP 130/72; PULSE 80; RESP 16; TEMP 36.6; O2SAT 98
--- NOTE | 2025-02-23 15:39 | PC.NURSE ---
pharmacy called to do pts med req
--- NOTE | 2025-02-23 16:37 | PC.NURSE ---
patient requesting pain medication, provider notified.
--- NOTE | 2025-02-23 16:48 | PC.NURSE ---
pt medicated for 11/15 pain
--- NOTE | 2025-02-23 20:06 | PC.NURSE ---
this RN assumed care of this pt @1900, pt noted to be laying semi bagley's, no respiratory or apparent distress noted, call light provided for safety, no needs made aware at this time
--- NOTE | 2025-02-23 20:43 | MHC.EDTECH ---
pt ambulated to and from bathroom with use of walker and a steady gait, RN aware
[2025-02-23 21:30] LABS: COVID-19 Test Negative (Negative); IDNOW Serial# 58CA691E
[2025-02-23 21:51] VITALS: BP 118/70; PULSE 84; RESP 16; TEMP 36.4; O2SAT 95
[2025-02-24] MEDS: diazePAM 10 MG/2 ML CARTRIDGE 5 MG IVPUSH (01:56)
--- NOTE | 2025-02-24 02:03 | PC.NURSE ---
at approximately 0110 pt turned application consultant light reporting pain due to back spasms, provider Jose Newton made aware, PRN Q6 PO Valium order placed, this RN was unable to pull medication from [facility] due to delay in verification of medication. Jose Newton made aware and order for STAT IV push valium order placed and given approximately @0155. PO Valium PRN order still pending verification at this time
[2025-02-24] MEDS: oxyCODONE HCl Immed Release 5 MG TABLET 10 MG PO ×2 (04:29→11:18)
[2025-02-24 05:04] VITALS: BP 131/91; PULSE 86; RESP 18; TEMP 36.1; O2SAT 99
[2025-02-24 06:48] VITALS: RESP 17
--- NOTE | 2025-02-24 10:02 | MHC.CM.ED ---
[facility]. Jose Alfredo HOLCOMB booked for 1130am. [facility] with chart. Patient, Jennifer GUDINO and Vlad WEINBERG aware. Continue to monitor for d/c needs.
--- NOTE | 2025-02-24 10:24 | PHA.MEDREC ---
Pharmacy Consult ? Medication Reconciliation Pharmacy has completed the medication reconciliation. Spoke with pt to confirm medications.
[2025-02-24 11:57] VITALS: BP 119/85; PULSE 80; RESP 16; TEMP 36.6; O2SAT 98
[2025-02-24 11:58] VITALS: BP 119/85; PULSE 80; RESP 16; TEMP 36.6; O2SAT 98
== END 2025-02-24 12:15 ==
PROVIDERS: Emergency Provider Emergency Medicine
DX: M54.16 Radiculopathy, lumbar region (principal); Z79.891 Long term (current) use of opiate analgesic; Z79.899 Other long term (current) drug therapy; Z88.5 Allergy status to narcotic agent; Z91.040 Latex allergy status
CPT/HCPCS: 36415; 80053; 85025; 87635; 96361; 96374; 96375; 96376; 97162; 99285; J1100; J1885; J3360; J7120

== ENCOUNTER 2025-03-02 06:13 | Outpatient (REF) | payer MEDICAID, SELFPAY ==
--- NOTE | ~2025-03-02 | FL_ITS ---
EXAMINATION: FLUOROSCOPY GUIDANCE FOR NEEDLE PLACEMENT CLINICAL INFORMATION: M54.16 - Radiculopathy, lumbar region COMPARISON: Previous lumbar spine MRI December 2024 TECHNIQUE: Fluoroscopy guidance pain management procedure . 6 submitted images. FINDINGS: Images demonstrate needle placement and contrast injection adjacent to the right lateral L5 vertebrae. See procedure note for detailed findings. FLUOROSCOPY TIME: 36 seconds DOSE AREA PRODUCT: [id number] mGy-cm2 FL/FL guidance in treatment room IMPRESSION: Fluoroscopy guidance for pain management procedure. Electronically signed by: Emma Valerio MD 03/02/2025 12:53 PM EST
--- OUTSIDE RECORDS SUMMARY | 2025-03-02 06:15 | XMS_ITS | Clinical Summary ---
Author Organization [facility] Address [address] [place] [address] Phone Care Team Providers Care Final Inspector Movement Assembly Name Role Phone Physician, Pcp Unknown Primary [...] age to complete this topic Care Teams Final Inspector Movement Assembly Relationship Specialty Start Date End Date Physician, Pcp Unknown PCP - General 06/09/24
== END 2025-03-02 06:14 | disposition home or self-care (01) ==
LOC: CF 06:13
PROVIDERS: Visit Provider Anesthesiology
DX: M54.16 Radiculopathy, lumbar region (principal)
CPT/HCPCS: 64483; J1100; J2003; Q9967

== ENCOUNTER 2025-03-02 10:40 | Outpatient (AMB) | payer MEDICAID, SELFPAY ==
--- NOTE | 2025-03-02 10:42 | A.OFFVIS_ITS ---
Vital Signs 03/02/25 10:56 03/02/25 11:33 BP 112/68 137/81 Blood Pressure Location Lt brachial Lt radial Position Sitting Sitting Respiration 16 16 Pulse 126 H 112 H Pulse Source Pulse Oximeter Pulse Oximeter Pulse Oximetry (%) 97 99 Oxygen Delivery Method Room Air Room Air Intake Visit Reasons: Right L5 TFESI Allergies iodine Allergy (Severe, Verified 02/23/25 03:07) Anaphylaxis latex Allergy (Verified 02/23/25 03:07) Unknown tramadol Allergy (Verified 02/23/25 03:07) Unknown [facility] Medical History Marijuana use Nicotine dependence Alcohol abuse Obesity Hypoglycemia PCOS (polycystic ovarian syndrome) Social History Household Members: Spouse Housing: Apartment Do you presently have visiting nurse or other home services: No Alcohol intake: current Alcohol intake frequency: a few times a month Comment: refusing bed alarm Patient Tobacco Use Status: Never used Tobacco Years Smoked: 12 e-Cigarette/Vaping Use: Currently Using Second Hand Smoke Exposure: No Substance Use Type: Marijuana service: No Physical Exam Vital Signs: Last Vital Signs Pulse 112 H 03/02/25 11:33 Resp 16 03/02/25 11:33 BP 137/81 03/02/25 11:33 Pulse Ox 99 03/02/25 11:33 Oxygen Delivery Method Room Air 03/02/25 11:33 Assessment & Plan Assessment & Plan (1) Lumbar radiculopathy: Code(s): M54.16 - Radiculopathy, lumbar region Category: Medical Plan Right L5-S1 transforaminal epidural steroid injection. Cathryn is very unfortunate 34 years old female who is back in December started to experience radiculopathy pain into the right lower extremity. She was admitted to [facility] and was sent for MRI which demonstrated very mild nerve root abutment and no compression, she was examined by neurosurgeon Dr. Caballero and both Dr. Raza and his PA were perplexed with extend of the patient's pain which would certainly not correspond to the mild changes on the images. The patient was recommended to have right L5-S1 transforaminal epidural steroid injection by pain management. The patient came today to receive the procedure as above. Informed consent was explained to the patient. Risks and benefits were explained to the patient. Patient was asked if she is and she denied. She was offered to have urine test but she refused. Risks and benefits were explained to the patient as risk of bleeding, infection, peripheral nerve damage, spinal cord damage, headache, possibility of increasing of the lower back pain instead of pain alleviation. She was brought to the operating room and positioned prone on the operating table. The lower back of the patient was prepped with ChloraPrep and draped with sterile self adhesive utility towels. After that C-arm was brought over the operating room and sq picture of L5 vertebra was demonstrated on the screen. Tilting C-arm ipsilateral to the right the most prominent picture of the L5 pedicle on the right was demonstrated on the screen. 2 mm below the level of the pedicle projection to the skin lidocaine 1% injection was made forming skin wheal. After that 22 gauge 7 in needle was inserted through the skin wheal and advanced toward the lowest point of the pedicle of interest. When the tip of the needle gently contacted the bone patient started to complain on pain radiating into bilateral (sic!!!)lower extremities. The needle was redirected away from the facet surface and advanced toward the foramina. When the needle entered foramina the injection of the contrast was performed and the contrast demonstrated epidural space. Injection of the treatment solution containing lidocaine 1% mixed with dexamethasone 10 mg was done. After that the needle was sithdrawn, bandaid was applied. Coding Level of Care Code Est Pt Level 3 (94682) Procedure Only Diagnoses Lumbar radiculopathy M54.16
[2025-03-02 10:56] VITALS: BP 112/68; PULSE 126; RESP 16; O2SAT 97
[2025-03-02 11:33] VITALS: BP 137/81; PULSE 112; RESP 16; O2SAT 99
== END 2025-03-02 11:27 | disposition home or self-care (01) ==
LOC: HO.PMCPRC 10:40
PROVIDERS: Visit Provider Anesthesiology
DX: M54.16 Radiculopathy, lumbar region (principal)
CPT/HCPCS: 64483